=== PATIENT | female | born 1960 | race Caucasian/White ===

== ENCOUNTER 2016-12-30 17:50 | Emergency (ER) | payer BC ==
[2016-12-30 19:34] VITALS: BP 139/79
--- NOTE | 2016-12-30 19:42 | UC ---
Eye Complaint HPI - HPI Summary HPI Summary: Pt c/o sudden onset of blood in left eye. Denies pain, injury or change in vision. - History of Current Complaint Chief Complaint: UCEye Stated Complaint: LEFT EYE COMPLAINT Time Seen by Provider: 12/30/16 19:28 Hx Obtained From: Patient ?: No Onset/Duration: Sudden Onset, Lasting Hours, Still Present Timing: Constant Severity Initially: Mild Severity Currently: Mild Location of Injury: Sclera Aggravating Factor(s): Nothing Alleviating Factor(s): Nothing Associated Signs And Symptoms: Positive: Negative Related History: Diagnosed As: - subjunctival hemorrhage - Risk Factors Acute Glaucoma Risk Factors: Negative - Allergies/Home Medications Allergies/Adverse Reactions: Allergies Allergy/AdvReac Type Severity Reaction Status Date / Time Cephalexin [From Keflex] AdvReac Diarrhea Verified 12/30/16 19:31 PMH/Surg Hx/FS Hx/Imm Hx Previously Healthy: Yes - Surgical History Surgical History: Yes Surgery Procedure, Year, and Place: partial hysterectomy, bladder tuck, thyroidectomy - Family History Known Family History: Negative: Renal Disease - Social History Occupation: Employed Full-time Lives: With Family Alcohol Use: Rare Substance Use Type: None Smoking Status (MU): Never Smoked Tobacco Have You Smoked in the Last Year: No - Immunization History Most Recent Influenza Vaccination: Not the 2016/2017 Season Review of Systems Constitutional: Negative Skin: Negative Eyes: Eye Redness - left eye ENT: Negative Respiratory: Negative Cardiovascular: Negative Gastrointestinal: Negative Genitourinary: Negative Motor: Negative Neurovascular: Negative Musculoskeletal: Negative Neurological: Negative Psychological: Negative Is Patient Immunocompromised?: No All Other Systems Reviewed And Are Negative: Yes Physical Exam Triage Information Reviewed: Yes Appearance: Well-Appearing Vital Signs: Initial Vital Signs Temp 98 F 12/30/16 19:30 Pulse 72 12/30/16 19:30 Resp 16 12/30/16 19:30 BP 139/79 12/30/16 19:30 Pulse Ox 99 12/30/16 19:30 Vital Signs Reviewed: Yes Eye Exam: Other - subjunctival hematoma left eye ENT Exam: Normal Dental Exam: Normal Neck exam: Normal Respiratory Exam: Normal Cardiovascular Exam: Normal Musculoskeletal Exam: Normal Neurological Exam: Normal Psychological Exam: Normal Skin Exam: Normal Eye Complaint Course/Dx - Differential Dx/Diagnosis Differential Diagnosis/HQI/PQRI: Other - hyphema Provider Diagnoses: subjunctival hemorrhage Discharge - Discharge Plan Condition: Stable Disposition: HOME Patient Education Materials: Subconjunctival Hemorrhage (ED) Referrals: Manny Black DO [Primary Care Provider] - If Needed Price Rouse MD [Medical Doctor] - Additional Instructions: Please follow up with your PCP or return to clinic as needed. We have also provided a referral to an eye care provider for you to follow up with as needed.
== END 2016-12-30 19:54 | disposition home or self-care (01) ==
LOC: UCCORT 17:50
DX: B30.3 Acute epidemic hemorrhagic conjunctivitis (enteroviral) (principal)
CPT/HCPCS: 99211; G0463

== ENCOUNTER 2018-11-06 09:40 | Emergency (ER) | payer BC ==
[2018-11-06 10:23] VITALS: BP 135/82
--- NOTE | 2018-11-06 10:51 | UC ---
Throat Pain/Nasal Reyes HPI - HPI Summary HPI Summary: 58yo female c/o 1 month sinus congestion with PND. Positive sinus pressure. No fever. Tried sudafed without relief. Now ears feel clogged. - History of Current Complaint Chief Complaint: UCRespiratory Stated Complaint: BILATERAL EARS Time Seen by Provider: 11/06/18 10:39 Pain Intensity: 6 - Allergies/Home Medications Allergies/Adverse Reactions: Allergies Allergy/AdvReac Type Severity Reaction Status Date / Time cephalexin AdvReac Diarrhea Verified 11/06/18 10:18 Home Medications: Home Medications Ascorbic Acid TAB* [Vitamin C TAB*] 1,000 mg PO DAILY 11/06/18 [History Confirmed 11/06/18] Calcium Carbonate [Calcium] 1,000 mg PO DAILY 11/06/18 [History Confirmed ] Levothyroxine TAB* [Synthroid TAB*] 125 mcg PO DAILY 11/06/18 [History Confirmed 11/06/18] Vitamin THERAPEUTIC TAB* [Theragran TAB*] 1 tab PO DAILY 11/06/18 [History Confirmed 11/06/18] PMH/Surg Hx/FS Hx/Imm Hx Previously Healthy: Yes Endocrine History: Hypothyroidism - Surgical History Surgical History: Yes Surgery Procedure, Year, and Place: partial hysterectomy, bladder tuck, thyroidectomy - Family History Known Family History: Negative: Renal Disease - Social History Alcohol Use: Rare Substance Use Type: None Smoking Status (MU): Never Smoked Tobacco Have You Smoked in the Last Year: No - Immunization History Most Recent Influenza Vaccination: Not the 2017/2017 Season Review of Systems All Other Systems Reviewed And Are Negative: Yes Constitutional: Positive: Negative Skin: Positive: Negative Eyes: Positive: Negative ENT: Positive: Sore Throat, Ear Ache, Nasal Discharge, Sinus Congestion, Sinus Pain/Tenderness Respiratory: Positive: Negative Cardiovascular: Positive: Negative Gastrointestinal: Positive: Negative Motor: Positive: Negative Neurovascular: Positive: Negative Musculoskeletal: Positive: Negative Neurological: Positive: Negative Psychological: Positive: Negative Is Patient Immunocompromised?: No Physical Exam Triage Information Reviewed: Yes Appearance: Well-Appearing, No Pain Distress, Well-Nourished Vital Signs: Initial Vital Signs Temp 98.1 F 11/06/18 10:15 Pulse 88 11/06/18 10:15 Resp 16 11/06/18 10:15 BP 135/82 09/02/19 10:15 Pulse Ox 98 11/06/18 10:15 Vital Signs Reviewed: Yes Eye Exam: Normal Eyes: Positive: Conjunctiva Clear ENT: Positive: Pharynx normal, Nasal drainage, TM dull - left rani Respiratory: Positive: Lungs clear, Normal breath sounds, No respiratory distress Cardiovascular: Positive: RRR Musculoskeletal: Positive: Strength Intact, ROM Intact Neurological: Positive: Alert Psychological: Positive: Age Appropriate Behavior Skin Exam: Normal Throat Pain/Nasal Course/Dx - Differential Dx/Diagnosis Provider Diagnosis: Sinusitis Discharge ED - Sign-Out/Discharge Documenting (check all that apply): Patient Departure All imaging exams completed and their final reports reviewed: No Studies - Discharge Plan Condition: Stable Disposition: HOME Prescriptions: Amoxicillin/Clavulanate TAB* [Augmentin TAB 875*] 875 mg PO BID #20 tab Fluticasone NASAL SPRAY 50MCG* [Flonase NASAL SPRAY 50MCG*] 2 spray BOTH NARES DAILY #1 btl Patient Education Materials: Sinusitis (ED) Referrals: Suzy Melchor PA [Primary Care Provider] - Additional Instructions: FOLLOW UP WITH YOUR DOCTOR IF NOT COMPLETELY IMPROVED. GET REEVALUATED SOONER IF YOUR CONDITION WORSENS OR ANY QUESTIONS OR CONCERNS. - Billing Disposition and Condition Condition: STABLE Disposition: Home
== END 2018-11-06 10:57 | disposition home or self-care (01) ==
LOC: UCCORT 09:40
DX: J32.9 Chronic sinusitis, unspecified (principal); E03.9 Hypothyroidism, unspecified
CPT/HCPCS: 99212; G0463

== ENCOUNTER 2019-01-20 07:01 | Emergency (ER) | payer BC ==
--- OUTSIDE RECORDS SUMMARY | 2019-01-20 07:11 | XMS REPORT | Continuity of Care Document ---
:1960 External Reference #:[id number] Author Name Suzy Melchor PA Address [address] [place] [id number] Problems Active Problems Provider Date Paroxysmal supraventricular tachycardia Manny Black DO Onset: 2010 Osteochondropathy Manny Black DO Onset: 10/02/2010 Hypothyroidism Manny Black DO Onset: 10/02/2010 Vitamin D deficiency Marly Ramirez PA Onset: 09/16/2010 Disorder of bone Manny Black DO Onset: 10/16/2015 Celiac disease Manny Black DO Onset: 04/15/2014 Dysphagia Jj Knigston MD Onset: 09/04/2014 Social History Type Date Description Comments Sex Unknown ETOH Use Rarely consumes alcohol Tobacco Use Start: Unknown Patient has never smoked Smoking Status Reviewed: 11/28/18 Patient has never smoked Allergies, Adverse Reactions, Alerts Active Allergies Reaction Severity Comments Date Keflex Diarrhea 05/26/2015 Inactive Allergies NKDA 04/19/2014 Medications Active Medications SIG Qnty Indications Ordering Date Provider Pantoprazole Sodium 1 by mouth Q D 30tabs K21.9 Saeed, 11/28/2018 40mg DO Too Tablets DR Cosme 4 drops in both 7.500ml H60.312 Saeed, 11/28/2018 0.3-0.1% Suspension ear twice daily DO Too for 7 days Methylprednisolone dose pack as 21tabs H69.03 Saeed, 11/28/2018 4mg Tablets instructed on DO Too box Celecoxib 1 by mouth once 90caps M54.9 Saeed, 05/26/2018 200mg Capsules daily DO Too Levothyroxine Sodium take one tablet 90tabs E03.9 Saeed, 05/05/2017 125mcg by mouth every Too, DO Tablets day Vitamin B-12 1 by mouth every 90tabs Wayne, 11/12/2015 1000mcg Tablets day DO Manny Calcium 1000 + D 1 by mouth every 30tabs Wayne, 04/15/2014 day DO Manny [id number] Tablets Multivitamins 1 by mouth every OTC Wayne, 04/15/2014 Capsules day DO Manny Ibuprofen take 1 tablet 90tabs Wayne, 03/23/2012 800mg Tablets three times a DO Manny day with food Immunizations CPT Code Status Date Vaccine Reaction Lot # [id number] Given 01/25/2018 Influenza Vac, Quadrivalent, Split, 0.5mL Dosage, [place] Use 06959 Given 12/18/2014 Influenza Virus TC3 [facility] Vaccine,Quadrivalent,Split,Preserv Free, 0.5mL,[place] [address] Given 10/31/2010 Pneumococcal 23 Immunization Adult [facility] Or Immunosuppressed Patient 16896 Given 04/28/1996 Tdap (Adacel) Ages 7 And Above [facility] Only [id number] Refused 11/28/2018 Shingrix (Shingles) Zoster aware can get at pharmacy Vaccine HZV, Recombinant, Subunit, Adj [id number] Refused 11/28/2018 Tdap (Adacel) Ages 7 And Above Only [address]97[address] Refused 11/28/2018 Fluzone Highdose Age 65 And Over will get in fall Preservative & Antibiotic Free Vital Signs Date Vital Result Comment 11/28/2018 8:31am Body Temperature 98.7 F Weight 193.00 lb Heart Rate 76 /min BP Systolic 138 mmHg BP Diastolic 78 mmHg Respiratory Rate 18 /min Height 70.25 inches 5'10.25" O2 % BldC Oximetry 98 % ra BMI (Body Mass Index) 27.5 kg/m2 05/26/2018 10:25am Weight 190.00 lb Heart Rate 78 /min BP Systolic 140 mmHg BP Diastolic 82 mmHg Respiratory Rate 18 /min Height 70.25 inches 5'10.25" BMI (Body Mass Index) 27.1 kg/m2 Results Description No Information Available Procedures Date Code Description Status 10/11/2016 68540328 Mammogram Completed 05/27/2016 [id number] Colonoscopy Completed Medical Devices Description No Information Available Encounters Description No Information Available Assessments Date Code Description Provider 11/28/2018 H60.312 Diffuse otitis externa, LEFT ear Suzy Melchor PA 11/28/2018 H69.03 Patulous Eustachian tube, bilateral Suzy Melchor PA 11/28/2018 K21.9 Gastro-esophageal reflux disease without Suzy Melchor PA esophagitis 11/28/2018 E03.9 Hypothyroidism, unspecified Suzy Melchor PA 11/28/2018 K90.0 Celiac disease Suzy Melchor PA 11/28/2018 K14.6 Glossodynia Suzy Melchor PA 11/28/2018 Z68.27 Body mass index (BMI) 27.0-27.9, adult Suzy Melchor PA Plan of Treatment Future Appointment(s):05/30/2019 8:30 am - Suzy Melchor PA at [facility]2018 - Suzy Melchor PAH60.312 Diffuse otitis externa, LEFT earNew Medication :Ciprodex 0.3-0.1 % - 4 drops in both ear twice daily for 7 daysComments:Will try ciprodex ear cakmjI39.03 Patulous Eustachian tube, bilateralNew Medication: Methylprednisolone 4 mg - dose pack as instructed on boxComments:Will try medrol dose pakIf no improvement, suggest ENT yyzbdcapS94.9 Gastro-esophageal reflux disease without esophagitisNew Medication:Pantoprazole Sodium 40 mg - 1 by mouth Q DComments:Will resume protonixIf no improvement in 2 weeks, suggest EGD with Dr. Crawford up:6 months labs 1 week iaympD28.9 Hypothyroidism, unspecifiedNew Labs:TSH-fcmg, Scheduled: 05/22/19CBC With Auto Diff, Scheduled: 05/22/19Comments:Will check labsCall with questions/ytrahcccC35.0 Celiac diseaseComments:Follows with Dr. MunozK14.6 GlossodyniaComments:Continue care with neurologyWill request vmmdehrQ47.27 Body mass index (BMI) 27.0-27.9, adultNew Labs:CMP, Comp Metabolic-Fcmg, Scheduled: 05/22/19Lipid Treatment Panel -fcmg, Scheduled: 05/22/19 Functional Status Description No Information Available Mental Status Description No Information Available Referrals Description No Information Available
--- OUTSIDE RECORDS SUMMARY | 2019-01-20 07:11 | XMS REPORT | Continuity of Care Document ---
:1960 External Reference #:[id number] Author Name Suzy Melchor PA Address [address] [place] [id number] Problems Active Problems Provider Date Paroxysmal supraventricular tachycardia Manny Black DO Onset: 2010 Osteochondropathy Manny Black DO Onset: 10/02/2010 Hypothyroidism Manny Black DO Onset: 10/02/2010 Vitamin D deficiency Marly Ramirez PA Onset: 09/16/2010 Disorder of bone Manny Black DO Onset: 10/16/2015 Celiac disease Manny Black DO Onset: 04/15/2014 Dysphagia Jj Kingston MD Onset: 09/04/2014 Social History Type Date Description Comments Sex Unknown ETOH Use Rarely consumes alcohol Tobacco Use Start: Unknown Patient has never smoked Smoking Status Reviewed: 11/28/18 Patient has never smoked Allergies, Adverse Reactions, Alerts Active Allergies Reaction Severity Comments Date Keflex Diarrhea 05/26/2015 Inactive Allergies NKDA 04/19/2014 Medications Active Medications SIG Qnty Indications Ordering Date Provider Prednisone 4 tablets by 30tabs H69.93 Too Saeed, 01/01/2019 10mg Tablets mouth x 3 days, DO then 3 tablets x 3 days, then 2 tablets x 3 days, then 1 tablet until finished Pantoprazole Sodium 1 by mouth Q D 30tabs K21.9 Too Saeed, 11/28/[address] Celecoxib 1 by mouth once 90caps M54.9 Too Saeed, 05/26/2018 200mg Capsules daily DO Levothyroxine Sodium take one tablet 90tabs E03.9 Too Saeed, 2017 by mouth every DO 125mcg Tablets day Vitamin B-12 1 by mouth every 90tabs Wayne, 11/12/2015 1000mcg day DO Manny Tablets Calcium 1000 + D 1 by mouth every 30tabs Wayne, 04/15/2014 day DO Manny [id number] Tablets Multivitamins 1 by mouth every OTC Wayne, 04/15/2014 Capsules day DO Manny Ibuprofen take 1 tablet 90tabs Wayne, 03/23/2012 800mg Tablets three times a day DO Manny with food History Medications Ciprodex 4 drops in both 7.500ml H60.312 Christophe, 11/28/2018 - 0.3-0.1% Suspension ear twice daily DO Too 01/01/2019 for 7 days Methylprednisolone dose pack as 21tabs H69.03 Christophe, 11/28/2018 - 4mg instructed on DO Too 01/01/2019 Tablets box Immunizations CPT Code Status Date Vaccine Reaction Lot # [id number] Given 01/25/2018 Influenza Vac, Quadrivalent, Split, 0.5mL Dos[place], [place] Use [address] Given 12/18/2014 Influenza Virus 3 [facility] Vaccine,Quadrivalent,Split,Preserv Free, 0.5mL,[place] [address] Given 10/31/2010 Pneumococcal 23 Immunization Adult [facility] Or Immunosuppressed Patient 605[address] Given 04/28/1996 Tdap (Adacel) Ages 7 And Above [facility] Only [id number] Refused 11/28/2018 Shingrix (Shingles) Zoster aware can get at pharmacy Vaccine HZV, Recombinant, Subunit, Adj [id number] Refused 11/28/2018 Tdap (Adacel) Ages 7 And Above Only [address] Refused 11/28/2018 Fluzone Highdose Age 65 And Over will get in fall Preservative & Antibiotic Free Vital Signs Date Vital Result Comment 01/01/2019 9:26am Weight 190.00 lb Heart Rate 76 /min BP Systolic 128 mmHg BP Diastolic 82 mmHg Respiratory Rate 18 /min Height 70.25 inches 5'10.25" BMI (Body Mass Index) 27.1 kg/m2 11/28/2018 8:31am Body Temperature 98.7 F Weight 193.00 lb Heart Rate 76 /min BP Systolic 138 mmHg BP Diastolic 78 mmHg Respiratory Rate 18 /min Height 70.25 inches 5'10.25" O2 % BldC Oximetry 98 % ra BMI (Body Mass Index) 27.5 kg/m2 Results Description No Information Available Procedures Date Code Description Status 10/11/2016 [id number] Mammogram Completed 05/27/2016 [id number] Colonoscopy Completed Medical Devices Description No Information Available Encounters Type Date Location Provider Dx Diagnosis Office Visit 11/28/2018 [facility] Suzy Melchor PA H60.312 Diffuse otitis 8:30a externa, LEFT ear H69.03 Patulous Eustachian tube, bilateral K21.9 Gastro-esophageal reflux disease without esophagitis E03.9 Hypothyroidism, unspecified K90.0 Celiac disease K14.6 Glossodynia Z13.31 Encounter for screening for depression Z68.27 Body mass index (BMI) 27.0-27.9, adult Assessments Date Code Description Provider 01/01/2019 H69.93 Unspecified Eustachian tube disorder, Suzy Melchor PA bilateral 01/01/2019 Z68.27 Body mass index (BMI) 27.0-27.9, adult Suzy Melchor PA 11/28/2018 H60.312 Diffuse otitis externa, LEFT ear uSzy Melchor PA 11/28/2018 H69.03 Patulous Eustachian tube, bilateral Suzy Melchor PA 11/28/2018 K21.9 Gastro-esophageal reflux disease without Suzy Melchor PA esophagitis 11/28/2018 E03.9 Hypothyroidism, unspecified Suzy Melchor PA 11/28/2018 K90.0 Celiac disease Suzy Melchor PA 11/28/2018 K14.6 Glossodynia Suzy Melchor PA 11/28/2018 Z13.31 Encounter for screening for depression Suzy Melchor PA 11/28/2018 Z68.27 Body mass index (BMI) 27.0-27.9, adult Suzy Melchor PA Plan of Treatment Future Appointment(s):05/30/2019 8:30 am - Suzy Melchor PA at [facility]2018 - Suzy Melchor, PAH69.93 Unspecified Eustachian tube disorder, bilateralNew Medication:Prednisone 10 mg - 4 tablets by mouth x 3 days, then 3 tablets x 3 days, then 2 tablets x 3 days, then 1 tablet until finishedComments: No evidence of infectionWill treat with longer course of steroidWill refer to ENT for evalReferral:Richmond Simms DR, OtolaryngologyFollow up:PrnZ68.27 Body mass index (BMI) 27.0-27.9, adult Functional Status Description No Information Available Mental Status Description No Information Available Referrals Refer to Reason for Referral Status Appt Date Richmond Simms DR BL ear pain, congestion x 2 months Faxed all Created necessary paperwork needed for the to review and schedule the pt. KR 01/01 [address] [place] [address] [phone]
[2019-01-20 07:17] VITALS: BP 139/87
--- NOTE | 2019-01-20 07:31 | UC ---
Respiratory Complaint HPI - HPI Summary HPI Summary: 8 DAYS OF PRODUCTIVE COUGH, CONGESTION, SINUS PRESSURE, HEADACHE AND FATIGUE. NO FEVER, NAUSEA/VOMITING. - History of Current Complaint Chief Complaint: UCGeneralIllness Stated Complaint: COLD /CONGEST Time Seen by Provider: 01/20/19 07:12 Hx Obtained From: Patient Onset/Duration: Gradual Onset, Lasting Days, Still Present Timing: Constant Severity Initially: Moderate Severity Currently: Moderate Pain Intensity: 7 Pain Scale Used: 0-10 Numeric Character: Cough: Productive Aggravating Factors: Nothing Alleviating Factors: Nothing Associated Signs And Symptoms: Positive: URI, Nasal Congestion, Sinus Discomfort. Negative: Dyspnea, Fever - Allergies/Home Medications Allergies/Adverse Reactions: Allergies Allergy/AdvReac Type Severity Reaction Status Date / Time cephalexin AdvReac Diarrhea Verified 01/20/19 07:12 Home Medications: Home Medications D-Methorphan/PE/Acetaminophen [Daytime Cold Multi-Symp Gelcap] 1 each PO ONCE [History Confirmed 01/20/19] Dm/Acetaminophen/Doxylamine [Nighttime Cold-Flu Rlf Sftgl] 1 each PO ONCE [History Confirmed 01/20/19] Pantoprazole TAB * [Protonix TAB*] 40 mg PO DAILY 01/20/19 [History Confirmed ] Pseudoephedrine TAB* [Sudafed TAB*] 1 dose PO ONCE 01/20/19 [History Confirmed 01/20/19] guaiFENesin [Mucinex] 600 mg PO ONCE 01/20/19 [History Confirmed 01/20/19] PMH/Surg Hx/FS Hx/Imm Hx - Additional Past Medical History Additional PMH: CELIAC Endocrine History: Hypothyroidism GI/ History: Gastroesophageal Reflux - Surgical History Surgical History: Yes Surgery Procedure, Year, and Place: partial hysterectomy, bladder tuck, thyroidectomy, inguinal hernia repair x2 - Family History Known Family History: Negative: Renal Disease - Social History Alcohol Use: Rare Substance Use Type: None Smoking Status (MU): Never Smoked Tobacco Have You Smoked in the Last Year: No - Immunization History Most Recent Influenza Vaccination: Not the 2017/2017 Season Review of Systems All Other Systems Reviewed And Are Negative: Yes Constitutional: Positive: Fatigue ENT: Positive: Sore Throat, Ear Ache, Nasal Discharge, Sinus Congestion Respiratory: Positive: Cough Cardiovascular: Positive: Negative Gastrointestinal: Positive: Negative Physical Exam Triage Information Reviewed: Yes Appearance: Well-Appearing, No Pain Distress, Well-Nourished Vital Signs: Initial Vital Signs Temp 98.2 F 01/20/19 07:15 Pulse 89 01/20/19 07:15 Resp 16 01/20/19 07:15 BP 139/87 01/20/19 07:15 Pulse Ox 100 01/20/19 07:15 Vital Signs Reviewed: Yes Eyes: Positive: Conjunctiva Clear ENT: Positive: Hearing grossly normal, Pharynx normal, TMs normal Neck: Positive: Supple, Nontender, No Lymphadenopathy Respiratory: Positive: No respiratory distress, No accessory muscle use, Other: - INTERMITTENT COARSE BREATH SOUNDS. Negative: Decreased breath sounds Cardiovascular Exam: Normal Abdomen Description: Positive: Soft Musculoskeletal: Positive: No Edema Neurological: Positive: Alert Psychological: Positive: Age Appropriate Behavior Skin: Negative: Rashes Respiratory Course/Dx - Differential Dx/Diagnosis Provider Diagnosis: Acute bronchitis Discharge ED - Sign-Out/Discharge Documenting (check all that apply): Patient Departure All imaging exams completed and their final reports reviewed: No Studies - Discharge Plan Condition: Stable Disposition: HOME Prescriptions: Azithromycin 500 mg PO DAILY #5 tablet predniSONE TAB* [Deltasone 20 MG TAB*] 40 mg PO DAILY #10 tab Patient Education Materials: Acute Bronchitis (ED) Referrals: Suzy Melchor PA [Primary Care Provider] - If Needed Additional Instructions: YOUR SYMPTOMS MAY BE VIRALLY MEDIATED BUT GIVEN THE LENGTH OF TIME YOU HAVE BEEN ILL WE WILL COVER YOU WITH ANTIBIOTICS. IF YOU START THE MEDICINE BE SURE TO TAKE IT FOR THE FULL COURSE. REST, HYDRATE, OTC MEDS NEEDED. WILL ALSO TREAT WITH PREDNISONE TO HELP WITH AIRWAY INFLAMMATION AND COUGH MEDICINE. SEEK FOLLOW-UP WITH YOUR PCP IF YOU ARE NOT IMPROVING OVER THE NEXT 1-2 WEEKS. USE OTC AFRIN FOR NASAL CONGESTION. 2 SPRAYS IN EACH NOSTRIL TWICE DAILY NEEDED. DO NOT USE FOR MORE THAN 3-4 DAYS IN A ROW TO PREVENT DEVELOPING REBOUND CONGESTION. - Billing Disposition and Condition Condition: STABLE Disposition: Home
== END 2019-01-20 07:48 | disposition home or self-care (01) ==
LOC: UCCORT 07:01
DX: J20.9 Acute bronchitis, unspecified (principal); R09.89 Other specified symptoms and signs involving the circulatory and respiratory systems; R09.81 Nasal congestion; R51 Headache; K21.9 Gastro-esophageal reflux disease without esophagitis; Z79.899 Other long term (current) drug therapy; Z88.1 Allergy status to other antibiotic agents
CPT/HCPCS: 99212; G0463

== ENCOUNTER 2019-05-18 12:42 | Emergency (ER) | payer BC ==
--- OUTSIDE RECORDS SUMMARY | 2019-05-18 13:29 | XMS REPORT ---
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, unspecified Problem Melena K92.1 Active 6574862 Problem Other abnormal and R92.8 Active 721424849 inconclusive findings on diagnostic imaging of breast Problem Disorder of bone M85.9 Active 62397354 density and structure, unspecified Problem Lichen planus, L43.9 Active 7328653 unspecified Problem Lichen sclerosus et L90.0 Active 81140515 atrophicus Problem Zoster without B02.9 Active 173120702 complications Problem Other specified M85.80 Active 16970247 disorders of bone density and structure, unspecified site Problem Diffuse cystic N60.12 Active 90957812 mastopathy of left breast Problem Diffuse cystic N60.11 Active 04921405 mastopathy of right breast Problem Other fecal R19.5 Active 749342304 abnormalities Problem Dysuria R30.0 Active 56042919 ALLERGIES No Information ENCOUNTERS Encounter Location Date Diagnosis [facility] 103 17 May, 2019 [place] [id number] [facility] Apr, [place] [id number] [place] [facility], [address] [place], complications B02.9 [place] [id number] [facility] Feb, OBG[place], [place] [id number] [facility] Feb, Lichen planus, unspecified OBGYN [facility], L43.9 ; Other abnormal and [place] [id number] inconclusive findings on diagnostic imaging of breast R92.8 and Dysuria R30.0 [place] [facility] Jan, Other abnormal and OBGYN [facility], inconclusive findings on [place] [id number] diagnostic imaging of breast R92.8 [facility] 103 Jan, OBGYN [place] [id number] [facility] 103 Jan, Other abnormal and OBGYN [facility], inconclusive findings on [place] [id number] diagnostic imaging of breast R92.8 ; Diffuse cystic mastopathy of left breast N60.12 and Diffuse cystic mastopathy of right breast N60.11 [facility] 103 14 May, 2018 OBGYN [place] [id number] [facility] 103 14 May, 2018 OBGYN [place], [place] [id number] [facility] 103 14 May, [facility] [place] [id number] (general) (routine) with abnormal findings Z01.411 ; Encounter for screening for malignant neoplasm of colon Z12.11 and Encounter for screening mammogram for malignant neoplasm of breast Z12.31 [facility] 19 Apr, 2018 Lichen sclerosus et OBGYN [facility], atrophicus L90.0 [place] [id number] [facility] 103 Mar, Other abnormal and OBGYN [facility], inconclusive findings [place] [id number] diagnostic imaging of breast R92.8 [facility] 103 Sep, [facility] of left breast N60.12 [place] [id number] [facility] May, [facility] gynecological examination [place] [id number] (general) (routine) with abnormal findings Z01.411 ; Encounter for screening for malignant neoplasm of cervix Z12.4 ; Encounter for screening mammogram for malignant neoplasm of breast Z12.31 ; Encounter for screening for malignant neoplasm of colon Z12.11 ; Diffuse cystic mastopathy of left breast N60.12 ; Other abnormal and inconclusive findings on diagnostic imaging of breast R92.8 ; Diffuse cystic mastopathy of right breast N60.11 ; Lichen sclerosus et atrophicus L90.0 and Disorder of bone density and structure, unspecified M85.9 [facility] 103 Apr, Lichen sclerosus et OBGYN [facility], atrophicus L90.0 [place] [id number] [facility] 103 Mar, Other abnormal [facility], inconclusive findings on [place] [id number] diagnostic imaging of breast R92.8 ; Diffuse cystic mastopathy of left breast N60.12 and Diffuse cystic mastopathy of right breast N60.11 [facility] Feb, OBGYN [place] [id number] [facility] Oct, OBG[place] [id number] [place] [facility] 103 Oct, Other abnormal and [facility], inconclusive findings on [place] [id number] diagnostic imaging of breast R92.8 [facility] Oct, [facility], mammogram for malignant [place] [id number] neoplasm of breast Z12.31 and Inconclusive mammogram R92.2 [place] [facility] 103 Jun, [place], [place] [id number] [facility] Apr, [place]BG[place], [place] [id number] [place] [facility] 103 Apr, OBG[place], [place] [id number] [place] [facility] 103 Mar, Other abnormal and [facility], inconclusive findings on [place] [id number] diagnostic imaging of breast R92.8 [place] [facility] Mar, [place] [id number] [place] [facility] 103 Mar, Encounter for [facility], gynecological examination [place] [id number] (general) (routine) with abnormal findings Z01.411 ; Encounter for screening for malignant neoplasm of cervix Z12.4 ; Encounter for screening mammogram for malignant neoplasm of breast Z12.31 ; Encounter for screening for malignant neoplasm of colon Z12.11 ; Lichen sclerosus et atrophicus L90.0 ; Other specified disorders of bone density and structure, unspecified site M85.80 and Melena K92.1 [place] [facility] Mar, Papulosquamous disorder, [facility], unspecified L44.9 and [place] [id number] Noninflammatory disorder of vulva and perineum, unspecified N90.9 [place] [facility] 103 Mar, Papulosquamous disorder, [facility], unspecified L44.9 ; [place] [id number] Encounter for gynecological examination (general) (routine) with abnormal findings Z01.411 ; Encounter for screening mammogram for malignant neoplasm of breast Z12.31 ; Encounter for screening for malignant neoplasm of cervix Z12.4 and Encounter for screening for malignant neoplasm of colon Z12.11 [place] [facility] 103 Mar, Papulosquamous disorder, OBGYN [facility], unspecified L44.9 [place] [id number] [place] [facility] 103 Jan, O[place], [place] [id number] [place] [facility] 103 Jan, Pelvic and perineal pain OBGYN [facility], R10.2 [place] [id number] [facility] Jan, Pelvic and perineal pain OBGYN 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, Lichen planus 697.0 [place] [id number] [place] [facility] 103 July, Lichen planus 697.0 OBGYN [place], [place] [id number] [place] [facility] 103 July, Lichen planus 697.0 O[place], [place] [id number] [place] [facility] 103 Jun, Vaginitis 616.10 OBGYN [place], [place] [id number] [place] [facility] 103 16 Jun, 2014 OBGYN [place], [place] [id number] [place] [facility] 16 Jun, 2014 PELVIC PAIN 625.9 OBGYN [place], [place] [id number] [facility] 103 14 Jun, 2014 OBG[place], [place] [id number] [place] [facility] 103 14 Jun, 2014 PELVIC PAIN 625.9 ; OBGYN [facility], VAGINAL DISCHARGE 623.5 ; [place] [id number] Lichen planus 697.0 and Blood in stool 578.1 [place] [facility] Mar, OBGYN [place], [place] [id number] [facility] 103 Mar, ROUTINE PHILANTHROPY OFFICER EXAMINATION OBGYN [facility], V72.31 ; SCREEN MALIG [place] [id number] NEOP-COLON V76.51 ; SCREEN MAMMOGRAM NEC V76.12 ; Stricture of vagina 623.2 ; Osteopenia 733.90 and Lichen planus 697.0 [facility] 103 08 Jun, 2013 OBGYN [place], [place] [id number] [facility] 103 Feb, [place], [place] [id number] [facility] 103 Feb, ROUTINE PHILANTHROPY OFFICER EXAMINATION OBGYN [facility], V72.31 ; SCREEN MALIG [place] [id number] NEOP-COLON V76.51 ; SCREEN MAMMOGRAM NEC V76.12 ; Stricture of vagina 623.2 ; Osteopenia 733.90 and Lichen planus 697.0 [place] [facility] 103 Jan, [place], [place] [id number] [facility] Mar, Osteopenia 733.90 [place], [place] [id number] [place] [facility] 103 Mar, OBG[place], [place] [id number] [place] [facility] 103 Mar, Osteopenia 733.90 [place], [place] [id number] [place] [facility] 103 Feb, ROUTINE PHILANTHROPY OFFICER EXAMINATION OBGYN [facility], V72.31 ; PAP SMEAR W/O PHILANTHROPY OFFICER [place] [id number] EXAM V76.2 ; Lichen planus 697.0 and SCREEN MAMMOGRAM NEC V76.12 [place] [facility] 103 Jun, PELVIC PAIN 625.9 and OBGYN [facility], Levator syndrome 564.6 [place] [id number] [place] [facility] 103 Jun, PELVIC PAIN 625.9 OBGYN [place], [place] [id number] [place] [facility] 103 May, [place]BG[place], [place] [id number] [place] [facility] 103 May, OBGYN [place], [place] [id number] [place] [facility] 103 May, OBG[place], [place] [id number] [place] [facility] 103 May, PELVIC PAIN 625.9 ; Lichen OBGYN [facility], planus 697.0 and Levator [place] [id number] syndrome 564.6 [place] [facility] 103 Sep, OBG[place], [place] [id number] [place] [facility] 103 Sep, ROUTINE PHILANTHROPY OFFICER EXAMINATION OBGYN [facility], V72.31 [place] [id number] [place] [facility] 103 Aug, Ovarian cyst NOS 620.2 and OBGYN [facility], BREAST PAIN 611.71 [place] [id number] [place] [facility] 103 Aug, Ovarian cyst NOS 620.2 O[place]YN [place], [place] [id number] [place] [facility] 103 Jun, Ovarian cyst NOS 620.2 O[place], [place] [id number] [place] [facility] 103 Jun, PELVIC PAIN 625.9 and OBGYN [facility], Ovarian cyst NOS 620.2 [place] [id number] [place] [facility] 103 Aug, ROUTINE PHILANTHROPY OFFICER EXAMINATION OBGYN [facility], V72.31 and Lichen planus [place] [id number] 697.0 [place] [facility] 103 Nov, OBG[place], [place] [id number] [place] [facility] 103 Nov, O[place], [place] [id number] [place] [facility] 103 Oct, Lichen planus 697.0 O[place]YN [place], [place] [id number] [place] [facility] 103 Sep, OBG[place], [place] [id number] [place] [facility] 103 Sep, Lichen sclerosus et OBGYN [facility], atrophicus 701.0 ; ABN [place] [id number] FINDINGS- ORGANS 793.5 ; Urinary frequency 788.41 and Dysuria 788.1 [facility] [address] Sep, Medical [place], [place] [id number] [place] [facility] Sep, Adnexal mass 625.8 [place], [place] [id number] [place] [facility] 103 Sep, Adnexal mass 625.8 [place], [place] [id number] [place] [facility] 103 Sep, OBG[place], [place] [id number] [place] [facility] 103 Aug, Adnexal mass 625.8 O[place], [place] [id number] [facility] 103 29 Aug, 2008 ROUTINE PHILANTHROPY OFFICER EXAMINATION OBGYN [facility], V72.31 ; Urinary frequency [place] [id number] 788.41 ; ABN FINDINGS- ORGANS 793.5 ; Bloating 787.3 and Fibrocystic disease of breast 610.1 IMMUNIZATIONS No Known Immunizations SOCIAL HISTORY Never Assessed REASON FOR REFERRAL FUNCTIONAL STATUS PLAN OF CARE VITAL SIGNS MEDICATIONS Unknown Medications PROCEDURES No Known procedures RESULTS No Results REASON FOR VISIT Insurance Providers [facility] Patient Patient Patient Patient Patient Subscriber Subscriber Subscriber Group Insurance Plan Plan Plan Plan ID Relationship Address Phone Name Date of ID Name Date of No Type Insurance Insurance Insurance Coverage to Subscriber Address Phone Name Dates Excellus [address] Excellus self Cathy [id number] Blue [address]2335 89 [address] [place] 5 Cross/[place] Cross/Blue Shield [address] Shield Blue Cross [address] Blue Cross self Cathy [id number] Blue 01654 89 Blue [place] 2 2 Shield Y [facility] [address] MEDICAL (GENERAL) HISTORY Type Description Date Medical History hyperthyroidism (past) Medical History hypothyroidism Medical History OAB Medical History blood transfusion-past Medical History Lichen Planus Medical History acid refluc Medical History celiac disease Surgical History hernia repair 1963 Surgical History thyroid removed 1974 Surgical History partial hysterectomy & bladder tuck 1989 Surgical History bladder tuck 2002 Surgical History Laparoscopic R oophorectomy 2008 Surgical History [place] Teeth 2009 Surgical History endoscopy 03/01/14 Surgical History colonoscopy 05/08/16 Hospitalization History childbirth Hospitalization History see above Hospitalization History dehydration from colonoscopy 10/16 Hospitalization History pneumonia 2011
--- OUTSIDE RECORDS SUMMARY | 2019-05-18 13:29 | XMS REPORT | Continuity of Care Document ---
:1960 External Reference #:[id number] Author Name AuraJohnTitaROSE Address [address] [place] [address] Problems Active Problems Provider Date Paroxysmal supraventricular [...] Patient has never smoked Smoking Status Reviewed: 05/08/19 Patient has never smoked Allergies, Adverse Reactions, Alerts Active Allergies Reaction Severity Comments Date Keflex Diarrhea 05/26/2015 Inactive Allergies NKDA 04/19/2014 Medications Active Medications SIG Qnty Indications Ordering Provider Date Pantoprazole Sodium 1 by mouth Q D 30tabs K21.9 Too Saeed, 11/28/[address] Celecoxib 1 by mouth once 90caps M54.9 Too Saeed, 05/26/2018 200mg Capsules daily DO Levothyroxine Sodium take one tablet 90tabs E03.9 Too Saeed, 2017 125mcg by mouth every DO Tablets day Vitamin B-12 1 by mouth 90tabs Manny Black, 11/12/2015 1000mcg every day DO Tablets Calcium 1000 + D 1 by mouth 30tabs Manny Black, 04/15/2014 every day DO [id number] Tablets Multivitamins 1 by mouth OTC Manny Black, 04/15/2014 Capsules every day DO Ibuprofen take 1 tablet 90tabs Manny Black, 03/23/2012 800mg Tablets three times a DO day with food History Medications Prednisone 4 tablets by 30tabs H69.93 Christophe, 01/01/2019 - 10mg Tablets mouth x 3 days, Too, DO 01/16/2019 then 3 tablets x 3 days, then 2 tablets x 3 days, then 1 tablet until finished Ciprodex 4 drops in both 7.500ml H60.312 Christophe, 11/28/2018 - 0.3-0.1% Suspension ear twice daily Too, DO 01/01/2019 for 7 days Methylprednisolone dose pack as 21tabs H69.03 Christophe, 11/28/2018 - 4mg instructed on Too DO 01/01/2019 Tablets box Immunizations CPT Code Status Date Vaccine Reaction Lot # [id number] Given 01/28/2019 Influenza Vac, Quadrivalent, Split, 0.5mL Dosage, Im Use 95314 Given 01/25/2018 Influenza Vac, Quadrivalent, Split, 0.5mL Dosage, Im Use 70714 Given 12/18/2014 Influenza Virus 3 [facility] Vaccine,Quadrivalent,Split,Preserv Free, 0.5mL,[place] [address] Given 10/31/2010 Pneumococcal 23 Immunization Adult [facility] Or Immunosuppressed Patient 80255 Given 04/28/1996 Tdap (Adacel) Ages 7 And Above [facility] Only [address] Refused 11/28/2018 Shingrix (Shingles) Zoster aware can get at pharmacy Vaccine HZV, Recombinant, Subunit, Adj 04152 Refused 11/28/2018 Tdap (Adacel) Ages 7 And Above Only [address] Refused 11/28/2018 Fluzone Highdose Age 65 And Over will get in fall Preservative & Antibiotic Free Vital Signs Date Vital Result Comment 05/08/2019 1:45pm Weight 189.00 lb Heart Rate 92 /min BP Systolic 150 mmHg BP Diastolic 90 mmHg Respiratory Rate 18 /min Height 70.25 inches 5'10.25" BMI (Body Mass Index) 26.9 kg/m2 01/01/2019 9:26am Weight 190.00 lb Heart Rate 76 /min BP Systolic 128 mmHg BP Diastolic 82 mmHg Respiratory Rate 18 /min Height 70.25 inches 5'10.25" BMI (Body Mass Index) 27.1 kg/m2 Results Description No Information Available Procedures Date Code Description Status 10/11/2016 50979631 Mammogram Completed 05/27/2016 10433125 Colonoscopy Completed Medical Devices Description No Information Available Encounters Type Date Location Provider Dx Diagnosis Office Visit 01/01/2019 [facility] Suzy Melchor PA H69.93 Unspecified Eustachian 9:30a tube disorder, bilateral Z68.27 Body mass index (BMI) 27.0-27.9, adult Office Visit 11/28/2018 8:30a [facility] Suzy Melchor PA H60.312 Diffuse otitis externa, LEFT ear H69.03 Patulous Eustachian tube, bilateral K21.9 Gastro-esophageal reflux disease without esophagitis E03.9 Hypothyroidism, unspecified K90.0 Celiac disease K14.6 Glossodynia Z13.31 Encounter for screening for depression Z68.27 Body mass index (BMI) 27.0-27.9, adult Assessments Date Code Description Provider 05/08/2019 R29.810 Facial weakness Tita Chavarria NP 05/08/2019 R03.0 Elevated blood-pressure reading, without Tita Chavarria NP diagnosis of hypertension 01/01/2019 H69.93 Unspecified Eustachian tube disorder, Suzy [...] 8:30 am - Suzy Melchor PA at [facility]2019 - Tita Chavarria, NPR29.810 Facial weaknessComments:Left sided droop of eyelid and weakened smile with change in vision all on left sideDiscussed potential for stroke given other symptoms. Advised recommend E.R. evaluation. Pt is agreeable to this however refuses EMS transport. Is accepting of risks of self-transport. Is medically stable at time of discharge. Will go to E.R. nowR03.0 Elevated blood-pressure reading, without diagnosis of hypertensionComments:Elevated blood pressure reading today Functional Status Description No Information Available Mental Status Description No Information Available Referrals Refer to Reason for Referral Status Appt Date [address] DR BL ear pain, congestion x 2 months Faxed all Closed 2018 necessary paperwork needed for the to review and schedule the pt. KR 01/01 [address] [place] [address] [phone]
--- OUTSIDE RECORDS SUMMARY | 2019-05-18 13:29 | XMS REPORT ---
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, unspecified Problem Melena K92.1 Active 4216539 Problem Other abnormal and R92.8 Active 077074113 inconclusive findings on diagnostic imaging of breast Problem Disorder of bone M85.9 Active 30608128 density and structure, unspecified Problem Lichen planus, L43.9 Active 2451035 unspecified Problem Lichen sclerosus et L90.0 Active 73309196 atrophicus Problem Zoster without B02.9 Active 968040338 complications Problem Other specified M85.80 Active 88275005 disorders of bone density and structure, unspecified site Problem Diffuse cystic 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 Active 35782250 mastopathy of left breast Problem Diffuse cystic N60.11 Active 57021546 mastopathy of right breast Problem Other fecal R19.5 Active 910159649 abnormalities Problem Dysuria R30.0 Active 85354978 ALLERGIES No Information ENCOUNTERS Encounter Location Date Diagnosis [facility] [address] 17 May, 2019 [place]BG[place] [id number] [facility] Apr, [place] [id number] [place] [facility] Feb, [place] [address] [place], complications B02.9 [place] [id number] [facility] Feb, [place]BGYN [place], [place] [id number] [facility] Feb, Lichen planus, unspecified OBGYN [facility], L43.9 ; Other abnormal and [place] [id number] inconclusive findings on diagnostic imaging of breast R92.8 and Dysuria R30.0 [facility] Jan, Other abnormal and OBGYN [facility], inconclusive [place] [id number] diagnostic imaging of breast R92.8 [facility] 103 Jan, OBGYN [place], [place] [id number] [facility] Jan, Other abnormal and OBGYN [facility], inconclusive [place] [id number] diagnostic imaging of breast R92.8 ; Diffuse cystic mastopathy of left breast N60.12 and Diffuse cystic mastopathy of right breast N60.11 [facility] 103 14 May, 2018 OBGYN [place], [place] [id number] [facility] 14 May, 2018 [place]BG[place] [id number] [facility] 14 May[facility] [place] [id number] (general) (routine) with abnormal findings Z01.411 ; Encounter for screening for malignant neoplasm of colon Z12.11 and Encounter for screening mammogram for malignant neoplasm of breast Z12.31 [facility] 19 Apr, 2018 Lichen sclerosus et OBGYN [facility], atrophicus L90.0 [place] [id number] [facility] Mar, Other abnormal and OBGYN [facility], inconclusive findings [place] [id number] diagnostic imaging of breast R92.8 [facility] Sep, [facility] of [facility] breast N60.12 [place] [id number] [facility] May, [facility] [place] [id number] (general) (routine) with abnormal findings Z01.411 ; [...] of bone density and structure, unspecified M85.9 [facility] 103 Apr, Lichen sclerosus et OBGYN [facility], atrophicus L90.0 [place] [id number] [facility] 103 Mar, Other [facility]clusive [place] [id number] diagnostic imaging of breast R92.8 ; Diffuse cystic mastopathy of left breast N60.12 and Diffuse cystic mastopathy of right breast N60.11 [facility] Feb, [place]BGYN [place], [place] [id number] [facility] Oct, [place]BG[place] [id number] [facility] 103 Oct, Other abnormal and [facility], inconclusive findings [place] [id number] diagnostic imaging of breast R92.8 [facility] Oct, [facility] mammogram for malignant [place] [id number] neoplasm of breast Z12.31 and Inconclusive mammogram R92.2 [facility] Jun, [place]BG[place], [place] [id number] [facility] Apr, [place], [place] [id number] [facility] Apr, [place]BG[place] [id number] [facility] Mar, Other abnormal and [facility] inconclusive [place] [id number] diagnostic imaging of breast R92.8 [facility] Mar, [place] [id number] [facility] Mar, Encounter for [facility], gynecological examination [place] [id number] (general) (routine) with abnormal findings Z01.411 ; Encounter for screening for malignant neoplasm of cervix Z12.4 ; Encounter for screening mammogram for malignant neoplasm of breast Z12.31 ; Encounter for screening for malignant neoplasm of colon Z12.11 ; Lichen sclerosus et atrophicus L90.0 ; Other specified disorders of bone density and structure, unspecified site M85.80 and Melena K92.1 [facility] Mar, Papulosquamous disorder, [facility], unspecified L44.9 and [place] [id number] Noninflammatory disorder of vulva and perineum, unspecified N90.9 [facility] Mar, Papulosquamous disorder, [facility], unspecified L44.9 ; [place] [id number] Encounter for gynecological examination (general) (routine) with abnormal findings Z01.411 ; Encounter for screening mammogram for malignant neoplasm of breast Z12.31 ; Encounter for screening for malignant neoplasm of cervix Z12.4 and Encounter for screening for malignant neoplasm of colon Z12.11 [facility] 103 Mar, Papulosquamous disorder, OBGYN [facility], unspecified L44.9 [place] [id number] [facility] Jan, [place]BG[place] [id number] [facility] Jan, Pelvic and perineal pain OBGYN [facility], R10.2 [place] [id number] [facility] Jan, Pelvic and perineal pain OBGYN [facility], R10.2 ; Anal spasm K59.4 ; [place] [id number] Papulosquamous disorder, unspecified L44.9 ; Dysuria R30.0 and Abnormal weight loss R63.4 [facility] Dec, [place]BG[place] [id number] [facility] Oct, [place] [id number] [facility] Oct, Dysuria 788.1 OBGYN [place] [id number] [address] Oct, UTI [Urinary tract OBGYN Road [address] [place], infection] 599.0 and [place] [id number] Lichen planus 697.0 [facility] July, PELVIC PAIN 625.9 and OBGYN [facility], Lichen planus 697.0 PR [id number] [facility] July, Lichen planus 697.0 [place]BGYN [place] [id number] [facility] July, Lichen planus 697.0 [place], [place] [id number] [facility] Jun, Vaginitis 616.10 [place] [id number] [facility] 103 16 Jun, 2014 [place]BGYN [place], [place] [id number] [facility] 16 Jun, 2014 PELVIC PAIN 625.9 [place]YN [place], [place] [id number] [facility] 14 Jun, 2014 OBGYN [place], [place] [id number] [facility] 103 14 Jun, 2014 PELVIC PAIN 625.9 ; OBGYN [facility], VAGINAL DISCHARGE 623.5 ; [place] [id number] Lichen planus 697.0 and Blood in stool 578.1 [facility] Mar, OBGYN [place], [place] [id number] [facility] Mar, ROUTINE [employer] EXAMINATION OBGYN [facility], V72.31 ; SCREEN MALIG [place] [id number] NEOP-COLON V76.51 ; SCREEN MAMMOGRAM NEC V76.12 ; Stricture of vagina 623.2 ; Osteopenia 733.90 and Lichen planus 697.0 [facility] 103 08 Jun, 2013 OBGYN [place], [place] [id number] [facility] 103 Feb, [place]BG[place], [place] [id number] [facility] Feb, ROUTINE [employer] EXAMINATION OBGYN [facility], V72.31 ; SCREEN MALIG [place] [id number] NEOP-COLON V76.51 ; SCREEN MAMMOGRAM NEC V76.12 ; Stricture of vagina 623.2 ; Osteopenia 733.90 and Lichen planus 697.0 [facility] Jan, [place], [place] [id number] [facility] Mar, Osteopenia 733.90 [place], [place] [id number] [facility] Mar, [place] [id number] [facility] Mar, Osteopenia 733.90 [place], [place] [id number] [facility] Feb, ROUTINE [employer] EXAMINATION OBGYN [facility], V72.31 ; PAP SMEAR W/O [employer] CONS[employer] PR [id number] EXAM V76.2 ; Lichen planus 697.0 and SCREEN MAMMOGRAM NEC V76.12 [facility] Jun, PELVIC PAIN 625.9 and OBGYN [facility], Levator syndrome 564.6 [place] [id number] [facility] Jun, PELVIC PAIN 625.9 [place], [place] [id number] [facility] May, [place], [place] [id number] [facility] May, [place] [id number] [facility] May, [place], [place] [id number] [facility] May, PELVIC PAIN 625.9 ; Lichen OBGYN [facility], planus 697.0 and Levator [place] [id number] syndrome 564.6 [facility] Sep, [place]BG[place], [place] [id number] [facility] Sep, ROUTINE [employer]ANT EXAMINATION OBGYN [facility], V72.31 [place] [id number] [facility] 103 Aug, Ovarian cyst NOS 620.2 and OBGYN [facility], BREAST PAIN 611.71 [place] [id number] [facility] Aug, Ovarian cyst NOS 620.2 [place], [place] [id number] [facility] 103 Jun, Ovarian cyst NOS 620.2 [place], [place] [id number] [facility] Jun, PELVIC PAIN 625.9 and OBGYN [facility], Ovarian cyst NOS 620.2 [place] [id number] [facility] 103 Aug, ROUTINE [employer]SULTANT EXAMINATION OBGYN [facility], V72.31 and Lichen planus [place] [id number] 697.0 [facility] Nov, [place], [place] [id number] [facility] Nov, [place], [place] [id number] [facility] Oct, Lichen planus 697.0 [place], [place] [id number] [facility] Sep, [place], [place] [id number] [facility] Sep, Lichen sclerosus et OBGYN [facility], atrophicus 701.0 ; ABN PR [id number] FINDINGS- ORGANS 793.5 ; Urinary frequency 788.41 and Dysuria 788.1 [facility] [address] Sep, [facility] [place] [id number] [facility] Sep, Adnexal mass 625.8 [place] [id number] [facility] Sep, Adnexal mass 625.8 [place], [place] [id number] [facility] Sep, [place], [place] [id number] [facility] 103 Aug, Adnexal mass 625.8 [place], [place] [id number] [facility] 103 29 Aug, 2008 ROUTINE [employer]SULTANT EXAMINATION OBGYN [facility], V72.31 ; Urinary frequency PR [id number] 788.41 ; ABN FINDINGS- ORGANS 793.5 ; Bloating 787.3 and Fibrocystic disease of breast 610.1 IMMUNIZATIONS No Known Immunizations SOCIAL HISTORY Never Assessed REASON FOR REFERRAL FUNCTIONAL STATUS PLAN OF CARE VITAL SIGNS MEDICATIONS Unknown Medications PROCEDURES No Known procedures RESULTS No Results REASON FOR VISIT Biopsy order - Needs updating. Insurance Providers [facility] Health Member Patient Patient Patient Patient Patient Subscriber Subscriber Subscriber Group Insurance Plan Plan Plan Plan ID Relationship Address Phone Name Date of ID Name Date of No Type Insurance Insurance Insurance Coverage to Subscriber Address Phone Name Dates Blue [employer] [phone] Blue Cross self Cathy [id number] [phone] Blue [id number] 89 [place] 2 2 Shield [facility] [address] [place] [phone] [employer] self Cathy [id number] Blue [id number] 89 Blue [place] 5 Cross/Blue [place] Cross/Blue Shield [id number] Shield MEDICAL (GENERAL) HISTORY Type Description Date Medical History hyperthyroidism (past) Medical History hypothyroidism Medical History OAB Medical History blood transfusion-past Medical History Lichen Planus Medical History acid refluc Medical History celiac disease Surgical History hernia repair 1963 Surgical History thyroid removed 1974 Surgical History partial hysterectomy & bladder tuck 1989 Surgical History bladder tuck 2002 Surgical History Laparoscopic R oophorectomy 2008 Surgical History [place] Teeth 2009 Surgical History endoscopy 03/01/14 Surgical History colonoscopy 05/08/16 Hospitalization History childbirth Hospitalization History see above Hospitalization History dehydration from colonoscopy 10/16 Hospitalization History pneumonia 2011
--- OUTSIDE RECORDS SUMMARY | 2019-05-18 13:29 | XMS REPORT ---
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 86385397 disorder, unspecified Problem Melena K92.1 Active 1160106 Problem Other abnormal and R92.8 Active 252206954 inconclusive findings on diagnostic imaging of breast Problem Disorder of bone M85.9 Active 95126072 density and structure, unspecified Problem Lichen planus, L43.9 Active 8007890 unspecified Problem Lichen sclerosus et L90.0 Active 00168681 atrophicus Problem [place]oster without B02.9 Active 470328387 complications Problem Other specified M85.80 Active 17781220 disorders of bone density and structure, unspecified site Problem Diffuse cystic N60.12 Active 85338738 mastopathy of left breast Problem Diffuse cystic N60.11 Active 08949312 mastopathy of right breast Problem Other fecal R19.5 Active 180353886 abnormalities Problem Dysuria R30.0 Active 35714607 ALLERGIES No Information ENCOUNTERS Encounter Location Date Diagnosis [facility] 103 17 May, 2019 [place] [id number] [facility] Apr, [place] [id number] [place] [facility] Feb, [place] [address] [place], complications B02.9 [place] [id number] [facility] Feb, [place] [id number] [facility] Feb, Lichen planus, unspecified OBGYN [facility], L43.9 ; Other abnormal and [place] [id number] inconclusive findings on diagnostic imaging of breast R92.8 and Dysuria R30.0 [place] [facility] Jan, Other abnormal and OBGYN [facility], inconclusive findings on [place] [id number] diagnostic imaging of breast R92.8 [facility] 103 Jan, OBGYN [place], [place] [id number] [facility] 103 Jan, Other abnormal and OBGYN [facility], inconclusive findings on [place] [id number] diagnostic imaging of breast R92.8 ; Diffuse cystic mastopathy of left breast N60.12 and Diffuse cystic mastopathy of right breast N60.11 [facility] 103 14 May, 2018 [place]BGYN [place], [place] [id number] [facility] 103 14 May, 2018 [place]BG[place] [id number] [facility] 14 May, [facility] [place] [id number] (general) (routine) with abnormal findings Z01.411 ; Encounter for screening for malignant neoplasm of colon Z12.11 and Encounter for screening mammogram for malignant neoplasm of breast Z12.31 [facility] 19 Apr, 2018 Lichen sclerosus et OBGYN [facility], atrophicus L90.0 [place] [id number] [facility] 103 Mar, Other abnormal and OBGYN [facility], inconclusive findings [place] [id number] diagnostic imaging of breast R92.8 [facility] 103 Sep, [facility], of left breast N60.12 [place] [id number] [facility] May, [facility] gynecological examination [place] [id number] (general) (routine) with abnormal findings Z01.411 ; [...] of bone density and structure, unspecified M85.9 [facility] 103 Apr, Lichen sclerosus et [facility]BG[facility], atrophicus L90.0 [place] [id number] [facility] 103 Mar, Other abnormal and [facility], inconclusive findings on [place] [id number] diagnostic imaging of breast R92.8 ; Diffuse cystic mastopathy of left breast N60.12 and Diffuse cystic mastopathy of right breast N60.11 [facility] Feb, [place]BG[place] [id number] [facility] Oct, [place]BG[place] [id number] [place] [facility] Oct, Other abnormal and [facility], inconclusive findings on [place] [id number] diagnostic imaging of breast R92.8 [facility] Oct, [facility], mammogram for malignant [place] [id number] neoplasm of breast Z12.31 and Inconclusive mammogram R92.2 [place] [facility] Jun, [place], [place] [id number] [facility] Apr, [place], [place] [id number] [place] [facility] 103 Apr, [place], [place] [id number] [place] [facility] 103 Mar, Other abnormal and [facility], inconclusive findings [place] [id number] diagnostic imaging of breast R92.8 [place] [facility] Mar, [place] [id number] [place] [facility] Mar, Encounter for [facility], gynecological examination [place] [id number] (general) (routine) with abnormal findings Z01.411 ; Encounter for screening for malignant neoplasm of cervix Z12.4 ; Encounter for screening mammogram for malignant neoplasm of breast Z12.31 ; Encounter for screening for malignant neoplasm of colon Z12.11 ; Lichen sclerosus et atrophicus L90.0 ; Other specified disorders of bone density and structure, unspecified site M85.80 and Melena K92.1 [place] [facility] Mar, Papulosquamous disorder, [facility], unspecified L44.9 and [place] [id number] Noninflammatory disorder of vulva and perineum, unspecified N90.9 [place] [facility] 103 Mar, Papulosquamous disorder, [facility], unspecified L44.9 ; [place] [id number] Encounter for gynecological examination (general) (routine) with abnormal findings Z01.411 ; Encounter for screening mammogram for malignant neoplasm of breast Z12.31 ; Encounter for screening for malignant neoplasm of cervix Z12.4 and Encounter for screening for malignant neoplasm of colon Z12.11 [place] [facility] 103 Mar, Papulosquamous disorder, OBGYN [facility], unspecified L44.9 [place] [id number] [place] [facility] 103 Jan, [place], [place] [id number] [place] [facility] 103 Jan, Pelvic and perineal pain O[facility], R10.2 [place] [id number] [facility] Jan, Pelvic and perineal pain OBGYN [facility], R10.2 ; Anal spasm K59.4 ; [place] [id number] Papulosquamous disorder, unspecified L44.9 ; Dysuria R30.0 and Abnormal weight loss R63.4 [place] [facility] Dec, [place]BG[place] [id number] [facility] Oct, [place] [id number] [facility] Oct, Dysuria 788.1 [place] [id number] [address] Oct, UTI [Urinary tract [address]BGYN [address] [place], infection] 599.0 and [place] [id number] Lichen planus 697.0 [place] [facility] July, PELVIC PAIN 625.9 and OBGYN [facility], Lichen planus 697.0 [place] [id number] [place] [facility] 103 July, Lichen planus 697.0 [place] [id number] [place] [facility] 103 July, Lichen planus 697.0 [place] [id number] [place] [facility] 103 Jun, Vaginitis 616.10 [place] [id number] [place] [facility] 103 16 Jun, 2014 [place]BG[place], [place] [id number] [place] [facility] 16 Jun, 2014 PELVIC PAIN 625.9 [place], [place] [id number] [facility] 14 Jun, 2014 [place] [id number] [place] [facility] 103 14 Jun, 2014 PELVIC PAIN 625.9 ; OBGYN [facility], VAGINAL DISCHARGE 623.5 ; [place] [id number] Lichen planus 697.0 and Blood in stool 578.1 [place] [facility] Mar, OBGYN [place], [place] [id number] [facility] 103 Mar, ROUTINE PATIENT REGISTRATION CLERK EXAMINATION OBGYN [facility], V72.31 ; SCREEN MALIG [place] [id number] NEOP-COLON V76.51 ; SCREEN MAMMOGRAM NEC V76.12 ; Stricture of vagina 623.2 ; Osteopenia 733.90 and Lichen planus 697.0 [facility] 103 08 Jun, 2013 OBGYN [place], [place] [id number] [facility] 103 Feb, [place]BG[place], [place] [id number] [facility] 103 Feb, ROUTINE PATIENT REGISTRATION CLERK EXAMINATION OBGYN [facility], V72.31 ; SCREEN MALIG [place] [id number] NEOP-COLON V76.51 ; SCREEN MAMMOGRAM NEC V76.12 ; Stricture of vagina 623.2 ; Osteopenia 733.90 and Lichen planus 697.0 [place] [facility] Jan, [place], [place] [id number] [facility] Mar, Osteopenia 733.90 [place] [id number] [place] [facility] 103 Mar, [place], [place] [id number] [place] [facility] 103 Mar, Osteopenia 733.90 [place] [id number] [place] [facility] 103 Feb, ROUTINE PATIENT REGISTRATION CLERK EXAMINATION OBGYN [facility], V72.31 ; PAP SMEAR W/O PATIENT REGISTRATION CLERK [place] [id number] EXAM V76.2 ; Lichen planus 697.0 and SCREEN MAMMOGRAM NEC V76.12 [place] [facility] 103 Jun, PELVIC PAIN 625.9 and OBGYN [facility], Levator syndrome 564.6 [place] [id number] [place] [facility] 103 Jun, PELVIC PAIN 625.9 [place], [place] [id number] [facility] 103 May, [place], [place] [id number] [facility] 103 May, [place], [place] [id number] [facility] 103 May, [place], [place] [id number] [facility] 103 May, PELVIC PAIN 625.9 ; Lichen OBGYN [facility], planus 697.0 and Levator [place] [id number] syndrome 564.6 [place] [facility] Sep, [place]BG[place], [place] [id number] [facility] 103 Sep, ROUTINE PATIENT REGISTRATION CLERK EXAMINATION OBGYN [facility], V72.31 [place] [id number] [place] [facility] 103 Aug, Ovarian cyst NOS 620.2 and OBGYN [facility], BREAST PAIN 611.71 [place] [id number] [place] [facility] 103 Aug, Ovarian cyst NOS 620.2 [place], [place] [id number] [facility] 103 Jun, Ovarian cyst NOS 620.2 [place] [id number] [place] [facility] 103 Jun, PELVIC PAIN 625.9 and OBGYN [facility], Ovarian cyst NOS 620.2 [place] [id number] [place] [facility] 103 Aug, ROUTINE PATIENT REGISTRATION CLERK EXAMINATION OBGYN [facility], V72.31 and Lichen planus [place] [id number] 697.0 [place] [facility] 103 Nov, [place] [id number] [place] [facility] 103 Nov, [place], [place] [id number] [facility] 103 Oct, Lichen planus 697.0 [place] [id number] [place] [facility] 103 Sep, [place], [place] [id number] [place] [facility] 103 Sep, Lichen sclerosus et OBGYN [facility], atrophicus 701.0 ; ABN [place] [id number] FINDINGS- ORGANS 793.5 ; Urinary frequency 788.41 and Dysuria 788.1 [facility] [address] Sep, [facility] [place] [id number] [place] [facility] Sep, Adnexal mass 625.8 [place] [id number] [facility] 103 Sep, Adnexal mass 625.8 [place] [id number] [place] [facility] 103 Sep, [place], [place] [id number] [facility] 103 Aug, Adnexal mass 625.8 [place], [place] [id number] [facility] 103 29 Aug, 2008 ROUTINE PATIENT REGISTRATION CLERK EXAMINATION OBGYN [facility], V72.31 ; Urinary frequency [place] [id number] 788.41 ; ABN FINDINGS- ORGANS 793.5 ; Bloating 787.3 and Fibrocystic disease of breast 610.1 IMMUNIZATIONS No Known Immunizations SOCIAL HISTORY Never Assessed REASON FOR REFERRAL FUNCTIONAL STATUS PLAN OF CARE VITAL SIGNS MEDICATIONS Unknown Medications PROCEDURES No Known procedures RESULTS No Results REASON FOR VISIT MAY 2019-colpo Insurance Providers [facility] Member Patient Patient Patient Patient Patient Subscriber Subscriber Subscriber Group Insurance Plan Plan Plan Plan ID Relationship Address Phone Name Date of ID Name Date of No Type Insurance Insurance Insurance Coverage to Subscriber Address Phone Name Dates Blue Cross [phone] Blue Cross self Cathy [id number] Blue [id number] 89 Blue [place] 2 2 Shield [facility] [address] [place] [phone] [place] self Cathy [id number] Blue [id number] 89 Blue [place] 5 Cross/Blue [place] Cross/Blue Shield [id number] Shield MEDICAL (GENERAL) HISTORY Type Description Date [...] History Laparoscopic R oophorectomy 2008 Surgical History [place] Teeth 2009 Surgical History endoscopy 03/01/14 Surgical History colonoscopy 05/08/16 Hospitalization History childbirth Hospitalization History see above Hospitalization History dehydration from colonoscopy 10/16 Hospitalization History pneumonia 2011
--- OUTSIDE RECORDS SUMMARY | 2019-05-18 13:29 | XMS REPORT ---
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, unspecified Problem Anal spasm K59.4 Active 52426715 Problem Abnormal weight R63.4 Active 823837418 loss Problem Pelvic and perineal R10.2 Active 703543016 pain Problem Lichen sclerosus et L90.0 Active 45693333 atrophicus Problem Other specified M85.80 Active 43741288 disorders of bone density and structure, unspecified site Problem Disorder of bone M85.9 Active 99218885 density and structure, unspecified Problem Diffuse cystic N60.12 Active 16462685 mastopathy of left breast Problem Diffuse cystic N60.11 Active 35072877 mastopathy of right breast Problem Subacute and N76.3 Active 087038264 chronic vulvitis Problem Other abnormal and R92.8 Active 622993579 inconclusive findings on diagnostic imaging of breast Problem Zoster without B02.9 Active 491924337 complications Problem Melena K92.1 Active 8815284 Problem Other fecal R19.5 Active 451370300 abnormalities Problem Lichen planus, L43.9 Active 8994797 unspecified Problem Dysuria R30.0 Active 03373501 Problem Rash and other R21 Active 729002748 nonspecific skin eruption ALLERGIES Substance Reaction Event Type Date Status Keflex stomach upset/diarrhea Drug Allergy Apr, Active ENCOUNTERS Encounter Location Date Diagnosis [facility] Apr, [place] [id number] [facility] May, [place] [id number] [facility] Apr, Subacute and chronic OBGYN [facility], vulvitis N76.3 and Rash [place] [address] and other nonspecific skin eruption R21 [place] [facility] [address] [facility] Feb, [place] [address] [place], complications B02.9 [place] [id number] [facility] Feb, [place] [id number] [facility] Feb, Lichen planus, unspecified OBGYN [facility], L43.9 ; Other abnormal and [place] [id number] inconclusive findings on diagnostic imaging of breast R92.8 and Dysuria R30.0 [facility] Jan, Other abnormal and OBGYN [facility], inconclusive findings on [place] [id number] diagnostic imaging of breast R92.8 [facility] Jan, [place] [id number] [facility] Jan, Other abnormal and OBGYN [facility], inconclusive findings [place] [id number] diagnostic imaging of breast R92.8 ; Diffuse cystic mastopathy of left breast N60.12 and Diffuse cystic mastopathy of right breast N60.11 [facility] 14 May, 2018 [place] [id number] [facility] May, [place] [id number] [facility] May[facility] examination [place] [id number] (general) (routine) with abnormal findings Z01.411 ; Encounter for screening for malignant neoplasm of colon Z12.11 and Encounter for screening mammogram for malignant neoplasm of breast Z12.31 [place] [facility] Apr, Lichen sclerosus et [facility]BG[facility], atrophicus L90.0 [place] [id number] [facility] Mar, Other abnormal and OBGYN [facility], inconclusive findings [place] [id number] diagnostic imaging of breast R92.8 [place] [facility] Sep, [facility], of left breast N60.12 [place] [id number] [facility] May, [facility], gynecological examination [place] [id number] (general) (routine) with abnormal findings Z01.411 ; [...] of bone density and structure, unspecified M85.9 [facility] Apr, Lichen sclerosus et [facility]BGYN [facility], atrophicus L90.0 [place] [id number] [place] [facility] Mar, Other abnormal [facility], inconclusive findings [place] [id number] diagnostic imaging of breast R92.8 ; Diffuse cystic mastopathy of left breast N60.12 and Diffuse cystic mastopathy of right breast N60.11 [facility] [facility] Feb, [facility] [place] [id number] [facility] Oct, [place] [id number] [facility] [facility] Oct, Other abnormal and [facility]BG[facility], inconclusive findings on [place] [id number] diagnostic imaging of breast R92.8 [facility] [facility] Oct, [facility], mammogram for malignant [place] [id number] neoplasm of breast Z12.31 and Inconclusive mammogram R92.2 [facility] [facility] Jun, [place] [id number] [facility] Apr, [place] [id number] [facility] Apr, [place] [id number] [facility] [facility] Mar, Other abnormal [facility], inconclusive findings on [place] [id number] diagnostic imaging of breast R92.8 [facility] [facility] Mar, [place] [id number] [facility] [facility] Mar, Encounter for [facility], gynecological examination [place] [id number] (general) (routine) with abnormal findings Z01.411 ; Encounter for screening for malignant neoplasm of cervix Z12.4 ; Encounter for screening mammogram for malignant neoplasm of breast Z12.31 ; Encounter for screening for malignant neoplasm of colon Z12.11 ; Lichen sclerosus et atrophicus L90.0 ; Other specified disorders of bone density and structure, unspecified site M85.80 and Melena K92.1 [facility] [facility] Mar, Papulosquamous disorder, OBGYN [facility], unspecified L44.9 and [place] [id number] Noninflammatory disorder of vulva and perineum, unspecified N90.9 [facility] [facility] 18 [place], 2016 Papulosquamous disorder, OBGYN [facility], unspecified L44.9 ; [place] [id number] Encounter for gynecological examination (general) (routine) with abnormal findings Z01.411 ; Encounter for screening mammogram for malignant neoplasm of breast Z12.31 ; Encounter for screening for malignant neoplasm of cervix Z12.4 and Encounter for screening for malignant neoplasm of colon Z12.11 [facility] 11 Mar, 2015 Papulosquamous disorder, OBGYN [facility], unspecified L44.9 [place] [id number] [facility] 10 Jan, 2015 [place] [id number] [facility] Jan, Pelvic and perineal pain [facility], R10.2 [place] [id number] [facility] [facility] Jan, Pelvic and perineal pain O[facility], R10.2 ; Anal spasm K59.4 ; [place] [id number] Papulosquamous disorder, unspecified L44.9 ; Dysuria R30.0 and Abnormal weight loss R63.4 [facility] Dec, [place] [id number] [facility] Oct, [place] [id number] [facility] Oct, Dysuria 788.1 [place] [id number] [place] [facility] [address] [place] [address] Oct, UTI [Urinary tract [address] [place], [facility]] 599.0 and [place] [id number] Lichen planus 697.0 [facility] July, PELVIC PAIN 625.9 and OBGYN [facility], Lichen planus 697.0 [place] [id number] [place] [facility] July, Lichen planus 697.0 [place] [id number] [facility] July, Lichen planus 697.0 [place] [id number] [place] [facility] Jun, Vaginitis 616.10 [place] [id number] [facility] Jun, [place] [id number] [facility] Jun, PELVIC PAIN 625.9 [place] [id number] [facility] Jun, [place] [id number] [facility] Jun, PELVIC PAIN 625.9 ; OBGYN [facility], VAGINAL DISCHARGE 623.5 ; [place] [id number] Lichen planus 697.0 and Blood in stool 578.1 [facility] Mar, [place] [id number] [facility] Mar, ROUTINE HEAT WELDER PLASTICS EXAMINATION O[facility], V72.31 ; SCREEN MALIG [place] [id number] NEOP-COLON V76.51 ; SCREEN MAMMOGRAM NEC V76.12 ; Stricture of vagina 623.2 ; Osteopenia 733.90 and Lichen planus 697.0 [place] [facility] Jun, [place] [id number] [facility] Feb, [place] [id number] [facility] Feb, ROUTINE HEAT WELDER PLASTICS EXAMINATION O[facility], V72.31 ; SCREEN MALIG [place] [id number] NEOP-COLON V76.51 ; SCREEN MAMMOGRAM NEC V76.12 ; Stricture of vagina 623.2 ; Osteopenia 733.90 and Lichen planus 697.0 [facility] Jan, [place] [id number] [facility] Mar, Osteopenia 733.90 [place] [id number] [facility] Mar, [place] [id number] [facility] Mar, Osteopenia 733.90 [place] [id number] [facility] Feb, ROUTINE HEAT WELDER PLASTICS EXAMINATION OBGYN [facility], V72.31 ; PAP SMEAR W/O HEAT WELDER PLASTICS [place] [id number] EXAM V76.2 ; Lichen planus 697.0 and SCREEN MAMMOGRAM NEC V76.12 [facility] Jun, PELVIC PAIN 625.9 and OBGYN [facility], Levator syndrome 564.6 [place] [id number] [facility] Jun, PELVIC PAIN 625.9 [place] [id number] [facility] May, [place] [id number] [facility] May, [place] [id number] [facility] May, [place] [id number] [facility] May, PELVIC PAIN 625.9 ; Lichen OBGYN [facility], planus 697.0 and Levator [place] [id number] syndrome 564.6 [facility] Sep, [place] [id number] [facility] Sep, ROUTINE HEAT WELDER PLASTICS EXAMINATION [facility], V72.31 [place] [id number] [facility] Aug, Ovarian cyst NOS 620.2 and OBGYN [facility], BREAST PAIN 611.71 [place] [id number] [facility] Aug, Ovarian cyst NOS 620.2 [place] [id number] [facility] Jun, Ovarian cyst NOS 620.2 [place] [id number] [facility] Jun, PELVIC PAIN 625.9 and OBGYN [facility], Ovarian cyst NOS 620.2 [place] [id number] [facility] Aug, ROUTINE HEAT WELDER PLASTICS EXAMINATION OBGYN [facility], V72.31 and Lichen planus [place] [id number] 697.0 [facility] Nov, [place] [id number] [facility] Nov, [place] [id number] [facility] Oct, Lichen planus 697.0 [place] [id number] [facility] Sep, [place] [id number] [facility] Sep, Lichen sclerosus et [facility]BGYN [facility], atrophicus 701.0 ; ABN [place] [id number] FINDINGS- ORGANS 793.5 ; Urinary frequency 788.41 and Dysuria 788.1 [facility] [address] Sep, Medical [place] [id number] [facility] Sep, Adnexal mass 625.8 [place] [id number] [facility] [facility] Sep, Adnexal mass 625.8 [place] [id number] [facility] Sep, [place] [id number] [facility] 103 Aug, Adnexal mass 625.8 [place] [id number] [facility] 103 Aug, ROUTINE HEAT WELDER PLASTICS EXAMINATION OBGYN [facility], V72.31 ; Urinary frequency [place] [id number] 788.41 ; ABN FINDINGS- ORGANS 793.5 ; Bloating 787.3 and Fibrocystic disease of breast 610.1 IMMUNIZATIONS No Known Immunizations SOCIAL HISTORY Never Assessed REASON FOR REFERRAL FUNCTIONAL STATUS PLAN OF CARE Activity Details Follow Up vulvar colpo one year Reason: VITAL SIGNS Height 71 in 2019-05-01 Weight 189 lbs 2019-05-01 BMI 26.36 kg/m2 2019-05-01 Blood pressure systolic 150 mm Hg 2019-05-01 Blood pressure diastolic 90 mm Hg 2019-05-01 MEDICATIONS Medication Instructions Dosage Frequency Start End Date Duration Status Date multivitamin orally once a 1 cap(s) 24h Active Multiple Vitamins day Calcium 600+D 600 orally qd 1 tab(s) 24h Active mg-200 units clobetasol applied 1 collin Apr, Active topical 0.05% topically once 2019 weekly, may use BID up to 3 weeks as needed for symptoms Ibuprofen 800 mg Oral tid prn 1 tab 15 days Active levothyroxine 125 orally once a 1 tab(s) 24h Active mcg (0.125 mg) day PROCEDURES Procedure Date Ordered Result Body Site COLPO EXAM OF VULVA W/SCOPE May 01, 2019 RESULTS No Results REASON FOR VISIT Vulvar Colpo Insurance Providers [facility] Member Patient Patient Patient Patient Patient Subscriber Subscriber Subscriber Group Insurance Plan Plan Plan Plan ID Relationship Address Phone Name Date of ID Name Date of No Type Insurance Insurance Insurance Coverage to Subscriber Address Phone Name Dates [place] [phone] [employer] self Cathy [id number] Blue [id number] [address] [place] 5 Cross/Blue [place] Cross/Blue Shield [address] Shield Blue Cross [phone] Blue Cross self Cathy [id number] [phone] Blue [address] 89 [place] 2 2 [facility] [address] MEDICAL (GENERAL) HISTORY Type Description Date Medical History hyperthyroidism (past) Medical History hypothyroidism Medical History OAB Medical History blood transfusion-past Medical History Lichen Planus Medical History GERD Medical History celiac disease Surgical History hernia repair 1963 Surgical History thyroid removed 1973 Surgical History partial hysterectomy & bladder tuck 1989 Surgical History bladder tuck 2002 Surgical History Laparoscopic R oophorectomy 2008 Surgical History [place] Teeth 2008 Surgical History endoscopy 03/01/14 Surgical History colonoscopy 05/08/16 Hospitalization History childbirth Hospitalization History see above Hospitalization History dehydration from colonoscopy 10/16 Hospitalization History pneumonia 2011
--- OUTSIDE RECORDS SUMMARY | 2019-05-18 13:29 | XMS REPORT ---
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 90870347 disorder, unspecified Problem Melena K92.1 Active 1552476 Problem Other abnormal and R92.8 Active 002460252 inconclusive findings on diagnostic imaging of breast Problem Disorder of bone M85.9 Active 47660592 density and structure, unspecified Problem Lichen planus, L43.9 Active 2303780 unspecified Problem Lichen sclerosus et L90.0 Active 64274374 atrophicus Problem Zoster without B02.9 Active 456013480 complications Problem Other specified M85.80 Active 71305865 disorders of bone density and structure, unspecified site Problem Diffuse cystic N60.12 Active 41161758 mastopathy of left breast Problem Diffuse cystic N60.11 Active 04908652 mastopathy of right breast Problem Other fecal R19.5 Active 770067282 abnormalities Problem Dysuria R30.0 Active 87245220 ALLERGIES Substance Reaction Event Type Date Status Keflex stomach upset/diarrhea Drug Allergy Feb, Active ENCOUNTERS Encounter Location Date Diagnosis [facility] 103 May, OBGYN [place], [place] [id number] [facility] 103 Apr, [place] [id number] [place] [address] Feb, [place] [address] [place], complications B02.9 [place] [id number] [facility] 103 Feb, OBGYN [place], [place] [id number] [facility] 103 Feb, Lichen planus, unspecified OBGYN [facility], L43.9 ; Other abnormal and [place] [id number] inconclusive findings on diagnostic imaging of breast R92.8 and Dysuria R30.0 [facility] 103 Jan, Other abnormal and OBGYN [facility], inconclusive findings [place] [id number] diagnostic imaging of breast R92.8 [facility] Jan, OBGYN [place], [place] [id number] [facility] 103 Jan, Other abnormal and OBGYN [facility], inconclusive findings [place] [id number] diagnostic imaging of breast R92.8 ; Diffuse cystic mastopathy of left breast N60.12 and Diffuse cystic mastopathy of right breast N60.11 [facility] 103 14 May, 2018 OBG[place], [place] [id number] [facility] 14 May, 2018 OBG[place], [place] [id number] [facility] 14 May, 2018 [facility] [place] [place] [id number] (general) (routine) with abnormal findings Z01.411 ; Encounter for screening for malignant neoplasm of colon Z12.11 and Encounter for screening mammogram for malignant neoplasm of breast Z12.31 [facility] 19 Apr, 2018 Lichen sclerosus et OBGYN [facility], atrophicus L90.0 [place] [id number] [facility] Mar, Other abnormal and OBGYN [facility], inconclusive findings on [place] [id number] diagnostic imaging of breast R92.8 [facility] 103 Sep, Diffuse cystic mastopathy OBGYN [facility], of left breast N60.12 [place] [id number] [facility] May, Encounter for OBGYN [facility], gynecological examination [place] [id number] (general) (routine) with abnormal findings Z01.411 ; [...] of bone density and structure, unspecified M85.9 [facility] 103 Apr, Lichen sclerosus et OBGYN [facility], atrophicus L90.0 [place] [id number] [facility] 103 Mar, Other abnormal and OBGYN [facility], inconclusive findings [place] [id number] diagnostic imaging of breast R92.8 ; Diffuse cystic mastopathy of left breast N60.12 and Diffuse cystic mastopathy of right breast N60.11 [facility] 103 Feb, OBGYN [place], [place] [id number] [facility] 103 Oct, OBGYN [place] [id number] [facility] 103 Oct, Other abnormal [facility], inconclusive findings [place] [id number] diagnostic imaging of breast R92.8 [facility] Oct, [facility] malignant [place] [id number] neoplasm of breast Z12.31 and Inconclusive mammogram R92.2 [facility] Jun, [facility] [place] [id number] [facility] 103 Apr, [place] [id number] [facility] 103 Apr, [place]BG[place] [id number] [facility] 103 Mar, Other abnormal and [facility], inconclusive findings [place] [id number] diagnostic imaging of breast R92.8 [facility] Mar, [facility] [place] [id number] [facility] 103 Mar, Encounter for [facility], gynecological examination [place] [id number] (general) (routine) with abnormal findings Z01.411 ; Encounter for screening for malignant neoplasm of cervix Z12.4 ; Encounter for screening mammogram for malignant neoplasm of breast Z12.31 ; Encounter for screening for malignant neoplasm of colon Z12.11 ; Lichen sclerosus et atrophicus L90.0 ; Other specified disorders of bone density and structure, unspecified site M85.80 and Melena K92.1 [facility] Mar, Papulosquamous disorder, [facility], unspecified L44.9 and [place] [id number] Noninflammatory disorder of vulva and perineum, unspecified N90.9 [facility] 103 Mar, Papulosquamous disorder, [facility], unspecified L44.9 ; [place] [id number] Encounter for gynecological examination (general) (routine) with abnormal findings Z01.411 ; Encounter for screening mammogram for malignant neoplasm of breast Z12.31 ; Encounter for screening for malignant neoplasm of cervix Z12.4 and Encounter for screening for malignant neoplasm of colon Z12.11 [facility] 103 Mar, Papulosquamous disorder, OBGYN [facility], unspecified L44.9 [place] [id number] [facility] 103 Jan, OBGYN [place], [place] [id number] [facility] 103 Jan, Pelvic and perineal pain OBGYN [facility], R10.2 [place] [id number] [facility] 103 Jan, Pelvic and perineal pain OBGYN [facility], R10.2 ; Anal spasm K59.4 ; [place] [id number] Papulosquamous disorder, unspecified L44.9 ; Dysuria R30.0 and Abnormal weight loss R63.4 [facility] 103 Dec, OBGYN [place], [place] [id number] [facility] 103 Oct, OBG[place], [place] [id number] [facility] 103 Oct, Dysuria 788.1 [place] [id number] [facility] Oct, UTI [Urinary tract OBGYN Road [address] [place], [facility]] 599.0 and [place] [id number] Lichen planus 697.0 [facility] 103 July, PELVIC PAIN 625.9 and OBGYN [facility], Lichen planus 697.0 [place] [id number] [facility] 103 July, Lichen planus 697.0 [place] [id number] [facility] 103 July, Lichen planus 697.0 [place] [id number] [facility] 103 Jun, Vaginitis 616.10 [place]BG[place], [place] [id number] [facility] 103 16 Jun, 2014 [place]BG[place], [place] [id number] [facility] 103 16 Jun, 2014 PELVIC PAIN 625.9 [facility], [place] [id number] [facility] 14 Jun, 2014 OBG[place], [place] [id number] [facility] 103 14 Jun, 2014 PELVIC PAIN 625.9 ; OBGYN [facility], VAGINAL DISCHARGE 623.5 ; [place] [id number] Lichen planus 697.0 and Blood in stool 578.1 [facility] Mar, [place]BG[place] [id number] [facility] Mar, ROUTINE GOLD MARKER EXAMINATION OBGYN [facility], V72.31 ; SCREEN MALIG [place] [id number] NEOP-COLON V76.51 ; SCREEN MAMMOGRAM NEC V76.12 ; Stricture of vagina 623.2 ; Osteopenia 733.90 and Lichen planus 697.0 [facility] 103 08 Jun, 2013 OBGYN [place] [id number] [facility] Feb, [place] [id number] [facility] 103 Feb, ROUTINE GOLD MARKER EXAMINATION OBGYN [facility], V72.31 ; SCREEN MALIG [place] [id number] NEOP-COLON V76.51 ; SCREEN MAMMOGRAM NEC V76.12 ; Stricture of vagina 623.2 ; Osteopenia 733.90 and Lichen planus 697.0 [facility] 103 Jan, [place]BG[place], [place] [id number] [facility] 103 Mar, Osteopenia 733.90 [place], [place] [id number] [facility] 103 Mar, OBG[place], [place] [id number] [facility] 103 Mar, Osteopenia 733.90 [place] [id number] [facility] 103 Feb, ROUTINE GOLD MARKER EXAMINATION OBGYN [facility], V72.31 ; PAP SMEAR W/O GOLD MARKER [place] [id number] EXAM V76.2 ; Lichen planus 697.0 and SCREEN MAMMOGRAM NEC V76.12 [facility] 103 Jun, PELVIC PAIN 625.9 and OBGYN [facility], Levator syndrome 564.6 [place] [id number] [facility] 103 Jun, PELVIC PAIN 625.9 [place] [id number] [facility] 103 May, [place]BG[place], [place] [id number] [facility] 103 May, [place]BG[place], [place] [id number] [facility] 103 May, OBG[place] [id number] [facility] 103 May, PELVIC PAIN 625.9 ; Lichen OBGYN [facility], planus 697.0 and Levator [place] [id number] syndrome 564.6 [facility] 103 Sep, [place]BG[place], [place] [id number] [facility] 103 Sep, ROUTINE GOLD MARKER EXAMINATION OBGYN [facility], V72.31 [place] [id number] [facility] 103 Aug, Ovarian cyst NOS 620.2 and OBGYN [facility], BREAST PAIN 611.71 [place] [id number] [facility] 103 Aug, Ovarian cyst NOS 620.2 [place] [id number] [facility] 103 Jun, Ovarian cyst NOS 620.2 [place], [place] [id number] [facility] 103 Jun, PELVIC PAIN 625.9 and OBGYN [facility], Ovarian cyst NOS 620.2 [place] [id number] [facility] 103 Aug, ROUTINE GOLD MARKER EXAMINATION OBGYN [facility], V72.31 and Lichen planus [place] [id number] 697.0 [facility] 103 Nov, [place]BG[place], [place] [id number] [facility] Nov, [place]BG[place], [place] [id number] [facility] 103 Oct, Lichen planus 697.0 [place] [id number] [facility] 103 Sep, [place]BG[place], [place] [id number] [facility] 103 Sep, Lichen sclerosus et OBGYN [facility], atrophicus 701.0 ; ABN [place] [id number] FINDINGS- ORGANS 793.5 ; Urinary frequency 788.41 and Dysuria 788.[address] [facility] [address] Sep, Medical [place] [id number] [facility] Sep, Adnexal mass 625.8 [place] [id number] [facility] 103 Sep, Adnexal mass 625.8 [place], [place] [id number] [facility] 103 Sep, [place]BG[place], [place] [id number] [facility] 103 Aug, Adnexal mass 625.8 OBGYN [facility], [place] [id number] [facility] 103 29 Aug, 2008 ROUTINE GOLD MARKER EXAMINATION OBGYN [facility], V72.31 ; Urinary frequency [place] [id number] 788.41 ; ABN FINDINGS- ORGANS 793.5 ; Bloating 787.3 and Fibrocystic disease of breast 610.1 IMMUNIZATIONS No Known Immunizations SOCIAL HISTORY Never Assessed REASON FOR REFERRAL FUNCTIONAL STATUS PLAN OF CARE Activity Details Follow Up annual in May, or sooner if symptoms don't resolve Reason: VITAL SIGNS Height 71 in 2019-02-08 Weight 188 lbs 2019-02-08 BMI 26.22 kg/m2 2019-02-08 Blood pressure systolic 128 mm Hg 2019-02-08 Blood pressure diastolic 78 mm Hg 2019-02-08 MEDICATIONS Medication Instructions Dosage Frequency Start End Date Duration Status Date multivitamin orally once a 1 cap(s) 24h Active Multiple Vitamins day Ibuprofen 800 mg Oral tid prn 1 tab 15 days Active Calcium 600+D 600 orally qd 1 tab(s) 24h Active mg-200 units clobetasol applied 1 collin 30 days Active topical 0.05% topically bid x 3 weeks, then weekly. prn levothyroxine 125 orally once a 1 tab(s) 24h Active mcg (0.125 mg) day PROCEDURES Procedure Date Ordered Result Body Site URINE-NO MICRO Feb 08, 2019 RESULTS Name Result Date Reference Range Urine dip Glucose blood + protein 0.3 Nitrite + Leuko 70+ Urobilinogen Keytone Bilirubin pH URINE CULTURE 2019-02-08 URINE CULTURE URETHRAL AMANDA REASON FOR VISIT vulvar pain and breast FNA f/u Insurance Providers [facility] Member Patient Patient Patient Patient Patient Subscriber Subscriber Subscriber Group Insurance Plan Plan Plan Plan ID Relationship Address Phone Name Date of ID Name Date of No Type Insurance Insurance Insurance Coverage to Subscriber Address Phone Name Dates Blue Cross [address] Blue Cross self Cathy [id number] Blue [id number] 89 [place] 2 2 [place] [address] [employer] [address] [employer] self [place] [id number] 89 [place] 5 Cross/Blue [place] Cross/Blue Shield [address] [facility] MEDICAL (GENERAL) HISTORY Type Description Date Medical History hyperthyroidism (past) Medical History hypothyroidism Medical History OAB Medical History blood transfusion-past Medical History Lichen Planus Medical History acid refluc Medical History celiac disease Surgical History hernia repair 1963 Surgical History thyroid removed 1974 Surgical History partial hysterectomy & bladder tuck 1989 Surgical History bladder tuck 2002 Surgical History Laparoscopic R oophorectomy 2008 Surgical History [place] Teeth 2008 Surgical History endoscopy 03/01/14 Surgical History colonoscopy 05/08/16 Hospitalization History childbirth Hospitalization History see above Hospitalization History dehydration from colonoscopy 10/16 Hospitalization History pneumonia 2011
--- OUTSIDE RECORDS SUMMARY | 2019-05-18 13:29 | XMS REPORT ---
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, unspecified Problem Melena K92.1 Active 3780090 Problem Other abnormal and R92.8 Active 781040302 inconclusive findings on diagnostic imaging of breast Problem Disorder of bone M85.9 Active 43559107 density and structure, unspecified Problem Lichen planus, L43.9 Active 9256850 unspecified Problem Lichen sclerosus et L90.0 Active 98958683 atrophicus Problem [place] without B02.9 Active 841545375 complications Problem Other specified M85.80 Active 80178457 disorders of bone density and structure, unspecified site Problem Diffuse cystic N60.12 Active 60085824 mastopathy of left breast Problem Diffuse cystic N60.11 Active 08314270 mastopathy of right breast Problem Other fecal R19.5 Active 310542674 abnormalities Problem Dysuria R30.0 Active 95970351 ALLERGIES No Information ENCOUNTERS Encounter Location Date Diagnosis [facility] [address] 17 May, 2019 [place] [id number] [facility] Apr, [place] [id number] [place] [facility] Feb, [place] [address] [place], complications B02.9 [place] [id number] [facility] Feb, [place] [id number] [facility] Feb, Lichen planus, unspecified [facility], L43.9 ; Other abnormal and [place] [id number] inconclusive findings on diagnostic imaging of breast R92.8 and Dysuria R30.0 [place] [facility] Jan, Other abnormal and [facility], inconclusive findings [place] [id number] diagnostic imaging of breast R92.8 [facility] Jan, [place] [id number] [facility] 103 Jan, Other abnormal and [facility], inconclusive findings on [place] [id number] diagnostic imaging of breast R92.8 ; Diffuse cystic mastopathy of left breast N60.12 and Diffuse cystic mastopathy of right breast N60.11 [facility] 103 14 May, 2018 [place] [id number] [facility] 103 14 May, 2018 [place] [id number] [facility] 14 May, [facility] [place] [id number] (general) (routine) with abnormal findings Z01.411 ; Encounter for screening for malignant neoplasm of colon Z12.11 and Encounter for screening mammogram for malignant neoplasm of breast Z12.31 [facility] 19 Apr, 2018 Lichen sclerosus et [facility], atrophicus L90.[id number] [facility] 103 Mar, Other abnormal and [facility], inconclusive findings [place] [id number] diagnostic imaging of breast R92.8 [facility] Sep, Diffuse [facility] of left breast N60.[id number] [facility] May, [facility] examination [place] [id number] (general) (routine) with abnormal findings Z01.411 ; [...] of bone density and structure, unspecified M85.9 [facility] 103 Apr, Lichen sclerosus et [facility], atrophicus L90.0 [place] [id number] [facility] 103 Mar, Other abnormal and [facility] inconclusive findings on [place] [id number] diagnostic imaging of breast R92.8 ; Diffuse cystic mastopathy of left breast N60.12 and Diffuse cystic mastopathy of right breast N60.11 [facility] Feb, [place] [id number] [facility] Oct, [place] [id number] [place] [facility] 103 Oct, Other abnormal and [facility], inconclusive findings [place] [id number] diagnostic imaging of breast R92.8 [facility] Oct, [facility] mammogram for malignant [place] [id number] neoplasm of breast Z12.31 and Inconclusive mammogram R92.2 [place] [facility] Jun, [place] [id number] [facility] Apr, [place] [id number] [place] [facility] Apr, [place] [id number] [place] [facility] 103 Mar, Other abnormal and [facility], inconclusive findings on [place] [id number] diagnostic imaging of breast R92.8 [place] [facility] Mar, [place] [id number] [place] [facility] Mar, Encounter for [facility], gynecological examination [place] [id number] (general) (routine) with abnormal findings Z01.411 ; Encounter for screening for malignant neoplasm of cervix Z12.4 ; Encounter for screening mammogram for malignant neoplasm of breast Z12.31 ; Encounter for screening for malignant neoplasm of colon Z12.11 ; Lichen sclerosus et atrophicus L90.0 ; Other specified disorders of bone density and structure, unspecified site M85.80 and Melena K92.1 [place] [facility] Mar, Papulosquamous disorder, [facility], unspecified L44.9 and [place] [id number] Noninflammatory disorder of vulva and perineum, unspecified N90.9 [place] [facility] 103 Mar, Papulosquamous disorder, [facility], unspecified L44.9 ; [place] [id number] Encounter for gynecological examination (general) (routine) with abnormal findings Z01.411 ; Encounter for screening mammogram for malignant neoplasm of breast Z12.31 ; Encounter for screening for malignant neoplasm of cervix Z12.4 and Encounter for screening for malignant neoplasm of colon Z12.11 [place] [facility] 103 Mar, Papulosquamous disorder, [facility], unspecified L44.9 [place] [id number] [place] [facility] Jan, [place] [id number] [place] [facility] 103 Jan, Pelvic and perineal pain [facility], R10.2 [place] [id number] [facility] Jan, Pelvic and perineal pain [facility], R10.2 ; Anal spasm K59.4 ; [place] [id number] Papulosquamous disorder, unspecified L44.9 ; Dysuria R30.0 and Abnormal weight loss R63.4 [place] [facility] Dec, [place] [id number] [facility] Oct, [place] [id number] [facility] Oct, Dysuria 788.1 [place] [id number] [address] Oct, UTI [Urinary tract OBGYN Road [address] [place], infection] 599.0 and [place] [id number] Lichen planus 697.0 [place] [facility] July, PELVIC PAIN 625.9 and [facility], Lichen planus 697.0 [place] [id number] [place] [facility] 103 July, Lichen planus 697.0 [place] [id number] [place] [facility] July, Lichen planus 697.0 [place] [id number] [place] [facility] 103 Jun, Vaginitis 616.10 [place] [id number] [place] [facility] 103 16 Jun, 2014 [place]BG[place], [place] [id number] [place] [facility] 16 Jun, 2014 PELVIC PAIN 625.9 [place], [place] [id number] [facility] 14 Jun, 2014 [place] [id number] [place] [facility] 103 14 Jun, 2014 PELVIC PAIN 625.9 ; [facility], VAGINAL DISCHARGE 623.5 ; [place] [id number] Lichen planus 697.0 and Blood in stool 578.1 [place] [facility] Mar, [place] [id number] [facility] 103 Mar, ROUTINE POTATO PANCAKE FRIER EXAMINATION [facility], V72.31 ; SCREEN MALIG [place] [id number] NEOP-COLON V76.51 ; SCREEN MAMMOGRAM NEC V76.12 ; Stricture of vagina 623.2 ; Osteopenia 733.90 and Lichen planus 697.0 [facility] 08 Jun, 2013 OBG[place], [place] [id number] [facility] 103 Feb, [place] [id number] [facility] Feb, ROUTINE POTATO PANCAKE FRIER EXAMINATION [facility], V72.31 ; SCREEN MALIG [place] [id number] NEOP-COLON V76.51 ; SCREEN MAMMOGRAM NEC V76.12 ; Stricture of vagina 623.2 ; Osteopenia 733.90 and Lichen planus 697.0 [place] [facility] Jan, [place] [id number] [facility] Mar, Osteopenia 733.90 [place] [id number] [place] [facility] Mar, [place] [id number] [place] [facility] Mar, Osteopenia 733.90 [place] [id number] [place] [facility] 103 Feb, ROUTINE POTATO PANCAKE FRIER EXAMINATION [facility], V72.31 ; PAP SMEAR W/O POTATO PAN[place]KE FRIER [place] [id number] EXAM V76.2 ; Lichen planus 697.0 and SCREEN MAMMOGRAM NEC V76.12 [place] [facility] Jun, PELVIC PAIN 625.9 and [facility], Levator syndrome 564.6 [place] [id number] [place] [facility] Jun, PELVIC PAIN 625.9 [place] [id number] [place] [facility] May, [place] [id number] [place] [facility] May, [place] [id number] [place] [facility] May, [place] [id number] [place] [facility] May, PELVIC PAIN 625.9 ; Lichen [facility], planus 697.0 and Levator [place] [id number] syndrome 564.6 [place] [facility] Sep, [place] [id number] [place] [facility] Sep, ROUTINE POTATO PANCAKE FRIER EXAMINATION [facility], V72.31 [place] [id number] [place] [facility] Aug, Ovarian cyst NOS 620.2 and [facility], BREAST PAIN 611.71 [place] [id number] [place] [facility] Aug, Ovarian cyst NOS 620.2 [place] [id number] [place] [facility] Jun, Ovarian cyst NOS 620.2 [place], [place] [id number] [place] [facility] Jun, PELVIC PAIN 625.9 and [facility], Ovarian cyst NOS 620.2 [place] [id number] [place] [facility] Aug, ROUTINE POTATO PANCAKE FRIER EXAMINATION [facility], V72.31 and Lichen planus [place] [id number] 697.0 [place] [facility] Nov, [place], [place] [id number] [place] [facility] Nov, [place] [id number] [place] [facility] Oct, Lichen planus 697.0 [place] [id number] [place] [facility] Sep, [place], [place] [id number] [place] [facility] Sep, Lichen sclerosus et [facility], atrophicus 701.0 ; ABN [place] [id number] FINDINGS- ORGANS 793.5 ; Urinary frequency 788.41 and Dysuria 788.[address] [facility] [address] Sep, [facility] [place] [id number] [place] [facility] Sep, Adnexal mass 625.8 [place] [id number] [place] [facility] Sep, Adnexal mass 625.8 [place], [place] [id number] [place] [facility] Sep, [place] [id number] [place] [facility] 103 Aug, Adnexal mass 625.8 [place], [place] [id number] [facility] 103 29 Aug, 2008 ROUTINE POTATO PANCAKE FRIER EXAMINATION [facility], V72.31 ; Urinary frequency [place] [id number] 788.41 ; ABN FINDINGS- ORGANS 793.5 ; Bloating 787.3 and Fibrocystic disease of breast 610.1 IMMUNIZATIONS No Known Immunizations SOCIAL HISTORY Never Assessed REASON FOR REFERRAL FUNCTIONAL STATUS PLAN OF CARE VITAL SIGNS MEDICATIONS Unknown Medications PROCEDURES No Known procedures RESULTS No Results REASON FOR VISIT Re:Breast imaging Insurance Providers [facility] Patient Patient Patient Patient Patient Subscriber Subscriber Subscriber Group Insurance Plan Plan Plan Plan ID Relationship Address Phone Name Date of ID Name Date of No Type Insurance Insurance Insurance Coverage to Subscriber Address Phone Name Dates [place] [address] [place] self [place] [id number] Blue 15505 89 [place] 5 Cross/[place] Cross/Blue Shield [id number] Shield Blue Cross [address] Blue Cross self [place] [id number] Blue 10704 89 [place] 2 2 Shield Y [facility] [address] MEDICAL (GENERAL) HISTORY Type Description Date Medical History hyperthyroidism (past) Medical History hypothyroidism Medical History OAB Medical History blood transfusion-past Medical History Lichen Planus Medical History acid refluc Medical History celiac disease Surgical History hernia repair 1963 Surgical History thyroid removed 1974 Surgical History partial hysterectomy & bladder tuck 1989 Surgical History bladder tuck 2002 Surgical History Laparoscopic R oophorectomy 2008 Surgical History [place] Teeth 2009 Surgical History endoscopy 03/01/14 Surgical History colonoscopy 05/08/16 Hospitalization History childbirth Hospitalization History see above Hospitalization History dehydration from colonoscopy 10/16 Hospitalization History pneumonia 2011
--- OUTSIDE RECORDS SUMMARY | 2019-05-18 13:29 | XMS REPORT ---
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 34024730 disorder, unspecified Problem Melena K92.1 Active 4187773 Problem Other abnormal and R92.8 Active 083096899 inconclusive findings on diagnostic imaging of breast Problem Disorder of bone M85.9 Active 27341064 density and structure, unspecified Problem Lichen planus, L43.9 Active 2680822 unspecified Problem Lichen sclerosus et L90.0 Active 66322473 atrophicus Problem Zoster without B02.9 Active 365273267 complications Problem Other specified M85.80 Active 86303320 disorders of bone density and structure, unspecified site Problem Diffuse cystic N60.12 Active 13780915 mastopathy of left breast Problem Diffuse cystic N60.11 Active 01253604 mastopathy of right breast Problem Other fecal R19.5 Active 209112744 abnormalities Problem Dysuria R30.0 Active 25554539 ALLERGIES No Information ENCOUNTERS Encounter Location Date Diagnosis [facility] 103 17 May, 2019 OBGYN [place] [id number] [facility] Apr, OBGYN [place] [id number] [place] [address] Feb, [place] [address] [place], complications B02.9 [place] [id number] [facility] Feb, OBGYN [place], [place] [id number] [facility] Feb, Lichen planus, unspecified OBGYN [facility], L43.9 ; Other abnormal and [place] [id number] inconclusive findings on diagnostic imaging of breast R92.8 and Dysuria R30.0 [facility] Jan, Other abnormal and OBGYN [facility], inconclusive findings [place] [id number] diagnostic imaging of breast R92.8 [facility] 103 Jan, OBGYN [place] [id number] [facility] 103 Jan, Other abnormal and OBGYN [facility], inconclusive findings on [place] [id number] diagnostic imaging of breast R92.8 ; Diffuse cystic mastopathy of left breast N60.12 and Diffuse cystic mastopathy of right breast N60.11 [facility] 103 14 May, 2018 OBGYN [place] [id number] [facility] 14 May, 2018 OBG[place] [id number] [facility] 103 14 May, [facility] [place] [id number] (general) (routine) with abnormal findings Z01.411 ; Encounter for screening for malignant neoplasm of colon Z12.11 and Encounter for screening mammogram for malignant neoplasm of breast Z12.31 [facility] 19 Apr, 2018 Lichen sclerosus et OBGYN [facility], atrophicus L90.0 [place] [id number] [facility] 103 Mar, Other abnormal and OBGYN [facility], inconclusive findings [place] [id number] diagnostic imaging of breast R92.8 [facility] 103 Sep, Diffuse cystic [facility]opathy [facility], of left breast N60.12 [place] [id number] [facility] May, [facility] examination [place] [id number] (general) (routine) with abnormal findings Z01.411 ; [...] of bone density and structure, unspecified M85.9 [facility] 103 Apr, Lichen sclerosus et OBGYN [facility], atrophicus L90.0 [place] [id number] [facility] 103 Mar, Other abnormal [facility], inconclusive findings [place] [id number] diagnostic imaging of breast R92.8 ; Diffuse cystic mastopathy of left breast N60.12 and Diffuse cystic mastopathy of right breast N60.11 [facility] Feb, OBGYN [place] [id number] [facility] Oct, OBG[place] [id number] [facility] 103 Oct, Other abnormal and [facility], inconclusive findings [place] [id number] diagnostic imaging of breast R92.8 [facility] Oct, [facility], mammogram for malignant [place] [id number] neoplasm of breast Z12.31 and Inconclusive mammogram R92.2 [facility] Jun, [place]BG[place] [id number] [facility] Apr, [place]BG[place] [id number] [facility] Apr, [place] [id number] [facility] 103 Mar, Other abnormal and [facility], inconclusive findings on [place] [id number] diagnostic imaging of breast R92.8 [facility] Mar, [place] [id number] [facility] 103 Mar, Encounter for [facility], gynecological examination [place] [id number] (general) (routine) with abnormal findings Z01.411 ; Encounter for screening for malignant neoplasm of cervix Z12.4 ; Encounter for screening mammogram for malignant neoplasm of breast Z12.31 ; Encounter for screening for malignant neoplasm of colon Z12.11 ; Lichen sclerosus et atrophicus L90.0 ; Other specified disorders of bone density and structure, unspecified site M85.80 and Melena K92.1 [facility] Mar, Papulosquamous disorder, [facility], unspecified L44.9 and [place] [id number] Noninflammatory disorder of vulva and perineum, unspecified N90.9 [facility] 103 Mar, Papulosquamous disorder, [facility], unspecified L44.9 ; [place] [id number] Encounter for gynecological examination (general) (routine) with abnormal findings Z01.411 ; Encounter for screening mammogram for malignant neoplasm of breast Z12.31 ; Encounter for screening for malignant neoplasm of cervix Z12.4 and Encounter for screening for malignant neoplasm of colon Z12.11 [facility] 103 Mar, Papulosquamous disorder, OBGYN [facility], unspecified L44.9 [place] [id number] [facility] Jan, OBGYN [place] [id number] [facility] 103 Jan, Pelvic and perineal pain OBGYN [facility], R10.2 [place] [id number] [facility] Jan, Pelvic and perineal pain OBGYN [facility], R10.2 ; Anal spasm K59.4 ; [place] [id number] Papulosquamous disorder, unspecified L44.9 ; Dysuria R30.0 and Abnormal weight loss R63.4 [facility] Dec, OBGYN [place] [id number] [facility] Oct, [place] [id number] [facility] Oct, Dysuria 788.1 OBGYN [place] [id number] [address] Oct, UTI [Urinary tract OBGYN Road [address] [place], infection] 599.0 and [place] [id number] Lichen planus 697.0 [facility] July, PELVIC PAIN 625.9 and OBGYN [facility], Lichen planus 697.0 [place] [id number] [facility] 103 July, Lichen planus 697.0 OBGYN [place] [id number] [facility] July, Lichen planus 697.0 OBGYN [place] [id number] [facility] 103 Jun, Vaginitis 616.10 OBGYN [place], [place] [id number] [facility] 103 16 Jun, 2014 OBGYN [place], [place] [id number] [facility] 16 Jun, 2014 PELVIC PAIN 625.9 OBGYN [place] [id number] [facility] 103 14 Jun, 2014 OBG[place] [id number] [facility] 103 14 Jun, 2014 PELVIC PAIN 625.9 ; OBGYN [facility], VAGINAL DISCHARGE 623.5 ; [place] [id number] Lichen planus 697.0 and Blood in stool 578.1 [facility] Mar, OBGYN [place], [place] [id number] [facility] Mar, ROUTINE LEAD ENGINEER EXAMINATION OBGYN [facility], V72.31 ; SCREEN [place] [id number] NEOP-COLON V76.51 ; SCREEN MAMMOGRAM NEC V76.12 ; Stricture of vagina 623.2 ; Osteopenia 733.90 and Lichen planus 697.0 [facility] 103 08 Jun, 2013 OBGYN [place] [id number] [facility] 103 Feb, O[place] [id number] [facility] 103 Feb, ROUTINE LEAD ENGINEER EXAMINATION OBGYN [facility], V72.31 ; SCREEN [place] [id number] NEOP-COLON V76.51 ; SCREEN MAMMOGRAM NEC V76.12 ; Stricture of vagina 623.2 ; Osteopenia 733.90 and Lichen planus 697.0 [facility] Jan, OBGYN [place] [id number] [facility] Mar, Osteopenia 733.90 [place] [id number] [facility] Mar, OBG[place] [id number] [facility] 103 Mar, Osteopenia 733.90 O[place], [place] [id number] [facility] Feb, ROUTINE LEAD ENGINEER EXAMINATION OBGYN [facility], V72.31 ; PAP SMEAR W/O LEAD ENGINEER [place] [id number] EXAM V76.2 ; Lichen planus 697.0 and SCREEN MAMMOGRAM NEC V76.12 [facility] Jun, PELVIC PAIN 625.9 and OBGYN [facility], Levator syndrome 564.6 [place] [id number] [facility] Jun, PELVIC PAIN 625.9 [place] [id number] [facility] 103 May, O[place] [id number] [facility] 103 May, OBG[place], [place] [id number] [facility] May, [place] [id number] [facility] 103 May, PELVIC PAIN 625.9 ; Lichen OBGYN [facility], planus 697.0 and [place] [id number] syndrome 564.6 [facility] Sep, [place] [id number] [facility] Sep, ROUTINE LEAD ENGINEER EXAMINATION OBGYN [facility], V72.31 [place] [id number] [facility] 103 Aug, Ovarian cyst NOS 620.2 and OBGYN [facility], BREAST PAIN 611.71 [place] [id number] [facility] Aug, Ovarian cyst NOS 620.2 [place] [id number] [facility] 103 Jun, Ovarian cyst NOS 620.2 O[place] [id number] [facility] 103 Jun, PELVIC PAIN 625.9 and OBGYN [facility], Ovarian cyst NOS 620.2 [place] [id number] [facility] 103 Aug, ROUTINE LEAD ENGINEER EXAMINATION OBGYN [facility], V72.31 and Lichen planus [place] [id number] 697.0 [facility] 103 Nov, [place] [id number] [facility] Nov, [place], [place] [id number] [facility] 103 Oct, Lichen planus 697.0 [place] [id number] [facility] Sep, [place] [id number] [facility] Sep, Lichen sclerosus et OBGYN [facility], atrophicus 701.0 ; ABN [place] [id number] FINDINGS- ORGANS 793.5 ; Urinary frequency 788.41 and Dysuria 788.1 [facility] [address] Sep, [facility] [place] [id number] [facility] Sep, Adnexal mass 625.8 [place] [id number] [facility] 103 Sep, Adnexal mass 625.8 [place], [place] [id number] [facility] 103 Sep, O[place] [id number] [facility] 103 Aug, Adnexal mass 625.8 O[place]YN [place], [place] [id number] [facility] 103 29 Aug, 2008 ROUTINE LEAD ENGINEER EXAMINATION OBGYN [facility], V72.31 ; Urinary frequency [place] [id number] 788.41 ; ABN FINDINGS- ORGANS 793.5 ; Bloating 787.3 and Fibrocystic disease of breast 610.1 IMMUNIZATIONS No Known Immunizations SOCIAL HISTORY Never Assessed REASON FOR REFERRAL FUNCTIONAL STATUS PLAN OF CARE VITAL SIGNS MEDICATIONS Unknown Medications PROCEDURES No Known procedures RESULTS No Results REASON FOR VISIT Diagnostic Heraclio mammo and US- 09/2018 Insurance Providers [facility] Member Patient Patient Patient Patient Patient Subscriber Subscriber Subscriber Group Insurance Plan Plan Plan Plan ID Relationship Address Phone Name Date of ID Name Date of No Type Insurance Insurance Insurance Coverage to Subscriber Address Phone Name Dates Blue [employer] [phone] Blue Cross self Cathy [id number] Blue [id number] [address] [place] 2 2 Shield [facility] [address] [place] [phone] [employer] self Cathy [id number] Blue [id number] 89 [place] 5 [place] Cross/Blue Shield [address] Shield MEDICAL (GENERAL) HISTORY Type Description Date [...] History Laparoscopic R oophorectomy 2008 Surgical History [place] Teeth 2008 Surgical History endoscopy 03/01/14 Surgical History colonoscopy 05/08/16 Hospitalization History childbirth Hospitalization History see above Hospitalization History dehydration from colonoscopy 10/16 Hospitalization History pneumonia 2011
--- OUTSIDE RECORDS SUMMARY | 2019-05-18 13:29 | XMS REPORT ---
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, unspecified Problem Melena K92.1 Active 6107606 Problem Other abnormal and R92.8 Active 065464251 inconclusive findings on diagnostic imaging of breast Problem Disorder of bone M85.9 Active 38610139 density and structure, unspecified Problem Lichen planus, L43.9 Active 3601036 unspecified Problem Lichen sclerosus et L90.0 Active 57254330 atrophicus Problem [place] without B02.9 Active 180968466 complications Problem Other specified M85.80 Active 98892246 disorders of bone density and structure, unspecified site Problem Diffuse cystic N60.12 Active 82094123 mastopathy of left breast Problem Diffuse cystic N60.11 Active 39857024 mastopathy of right breast Problem Other fecal R19.5 Active 131267052 abnormalities Problem Dysuria R30.0 Active 94112882 ALLERGIES No Information ENCOUNTERS Encounter Location Date Diagnosis [facility] [address] 17 May, 2019 [place] [id number] [facility] Apr, O[place], [place] [id number] [place] [facility] Feb, [place] [address] [place], complications B02.9 [place] [id number] [facility] Feb, [place]BG[place] [id number] [facility] Feb, Lichen planus, unspecified OBGYN [facility], L43.9 ; Other abnormal and [place] [id number] inconclusive findings on diagnostic imaging of breast R92.8 and Dysuria R30.0 [place] [facility] Jan, Other abnormal and OBGYN [facility], inconclusive findings on [place] [id number] diagnostic imaging of breast R92.8 [facility] Jan, OBGYN [place], [place] [id number] [facility] 103 Jan, Other abnormal and OBGYN [facility], inconclusive findings on [place] [id number] diagnostic imaging of breast R92.8 ; Diffuse cystic mastopathy of left breast N60.12 and Diffuse cystic mastopathy of right breast N60.11 [facility] 103 14 May, 2018 OBGYN [place], [place] [id number] [facility] 103 14 May, 2018 [place]BG[place] [id number] [facility] 14 May, [facility] [place] [id number] (general) (routine) with abnormal findings Z01.411 ; Encounter for screening for malignant neoplasm of colon Z12.11 and Encounter for screening mammogram for malignant neoplasm of breast Z12.31 [facility] 19 Apr, 2018 Lichen sclerosus et OBGYN [facility], atrophicus L90.[address] [place] [id number] [facility] 103 Mar, Other abnormal and OBGYN [facility], inconclusive findings [place] [id number] diagnostic imaging of breast R92.[address] [facility] Sep, [facility] of [place] breast N60.[address] [place] [id number] [facility] May, [facility] gynecological examination [place] [id number] (general) (routine) with abnormal findings Z01.411 ; [...] of bone density and structure, unspecified M85.9 [facility] 103 Apr, Lichen sclerosus et OBGYN [facility], atrophicus L90.0 [place] [id number] [facility] 103 Mar, Other abnormal and [facility], inconclusive findings [place] [id number] diagnostic imaging of breast R92.8 ; Diffuse cystic mastopathy of left breast N60.12 and Diffuse cystic mastopathy of right breast N60.[address] [facility] Feb, [place] [id number] [facility] Oct, [place] [id number] [place] [facility] 103 Oct, Other abnormal and [facility], inconclusive findings [place] [id number] diagnostic imaging of breast R92.[address] [facility] Oct, [facility], mammogram for malignant [place] [id number] neoplasm of breast Z12.31 and Inconclusive mammogram R92.2 [place] [facility] Jun, [place]BG[place] [id number] [facility] Apr, [place], [place] [id number] [place] [facility] Apr, [place], [place] [id number] [place] [facility] 103 Mar, Other abnormal and [facility], inconclusive findings on [place] [id number] diagnostic imaging of breast R92.8 [place] [facility] Mar, [place] [id number] [place] [facility] Mar, Encounter for [facility], gynecological examination [place] [id number] (general) (routine) with abnormal findings Z01.411 ; Encounter for screening for malignant neoplasm of cervix Z12.4 ; Encounter for screening mammogram for malignant neoplasm of breast Z12.31 ; Encounter for screening for malignant neoplasm of colon Z12.11 ; Lichen sclerosus et atrophicus L90.0 ; Other specified disorders of bone density and structure, unspecified site M85.80 and Melena K92.1 [place] [facility] Mar, Papulosquamous disorder, [facility], unspecified L44.9 and [place] [id number] Noninflammatory disorder of vulva and perineum, unspecified N90.9 [place] [facility] 103 Mar, Papulosquamous disorder, [facility], unspecified L44.9 ; [place] [id number] Encounter for gynecological examination (general) (routine) with abnormal findings Z01.411 ; Encounter for screening mammogram for malignant neoplasm of breast Z12.31 ; Encounter for screening for malignant neoplasm of cervix Z12.4 and Encounter for screening for malignant neoplasm of colon Z12.11 [place] [facility] Mar, Papulosquamous disorder, OBGYN [facility], unspecified L44.9 [place] [id number] [place] [facility] Jan, [place]BG[place] [id number] [place] [facility] Jan, Pelvic and perineal pain OBGYN [facility], R10.2 [place] [id number] [facility] Jan, Pelvic and perineal pain OBGYN [facility], R10.2 ; Anal spasm K59.4 ; [place] [id number] Papulosquamous disorder, unspecified L44.9 ; Dysuria R30.0 and Abnormal weight loss R63.4 [place] [facility] Dec, [place]BG[place] [id number] [facility] Oct, [place] [id number] [facility] Oct, Dysuria 788.1 OBGYN [place] [id number] [address] Oct, UTI [Urinary tract OBGYN [address] [place], infection] 599.0 and [place] [id number] Lichen planus 697.0 [place] [facility] July, PELVIC PAIN 625.9 and OBGYN [facility], Lichen planus 697.0 [place] [id number] [place] [facility] July, Lichen planus 697.0 [place] [id number] [place] [facility] July, Lichen planus 697.0 [place], [place] [id number] [place] [facility] Jun, Vaginitis 616.10 [place] [id number] [place] [facility] 103 16 Jun, 2014 OBG[place], [place] [id number] [place] [facility] 16 Jun, 2014 PELVIC PAIN 625.9 [place], [place] [id number] [facility] 14 Jun, 2014 [place], [place] [id number] [place] [facility] 103 14 Jun, 2014 PELVIC PAIN 625.9 ; OBGYN [facility], VAGINAL DISCHARGE 623.5 ; [place] [id number] Lichen planus 697.0 and Blood in stool 578.1 [place] [facility] Mar, OBG[place] [id number] [facility] Mar, ROUTINE FARM TRACTOR MECHANIC EXAMINATION OBGYN [facility], V72.31 ; SCREEN MALIG [place] [id number] NEOP-COLON V76.51 ; SCREEN MAMMOGRAM NEC V76.12 ; Stricture of vagina 623.2 ; Osteopenia 733.90 and Lichen planus 697.0 [facility] 103 08 Jun, 2013 OBGYN [place], [place] [id number] [facility] Feb, [place] [id number] [facility] Feb, ROUTINE FARM TRACTOR MECHANIC EXAMINATION OBGYN [facility], V72.31 ; SCREEN MALIG [place] [id number] NEOP-COLON V76.51 ; SCREEN MAMMOGRAM NEC V76.12 ; Stricture of vagina 623.2 ; Osteopenia 733.90 and Lichen planus 697.0 [place] [facility] Jan, [place] [id number] [facility] Mar, Osteopenia 733.90 [place] [id number] [place] [facility] Mar, [place] [id number] [place] [facility] Mar, Osteopenia 733.90 [place] [id number] [place] [facility] 103 Feb, ROUTINE FARM TRACTOR MECHANIC EXAMINATION OBGYN [facility], V72.31 ; PAP SMEAR W/O FARM TRACTOR MECHANIC [place] [id number] EXAM V76.2 ; Lichen planus 697.0 and SCREEN MAMMOGRAM NEC V76.12 [place] [facility] Jun, PELVIC PAIN 625.9 and OBGYN [facility], Levator syndrome 564.6 [place] [id number] [place] [facility] Jun, PELVIC PAIN 625.9 [place] [id number] [facility] [facility] May, [place], [place] [id number] [place] [facility] May, [place], [place] [id number] [place] [facility] May, [place], [place] [id number] [facility] [facility] 103 May, PELVIC PAIN 625.9 ; Lichen OBGYN [facility], planus 697.0 and Levator [place] [id number] syndrome 564.6 [place] [facility] Sep, [place], [place] [id number] [place] [facility] Sep, ROUTINE FARM TRACTOR MECHANIC EXAMINATION OBGYN [facility], V72.31 [place] [id number] [place] [facility] Aug, Ovarian cyst NOS 620.2 and OBGYN [facility], BREAST PAIN 611.71 [place] [id number] [place] [facility] Aug, Ovarian cyst NOS 620.2 [place] [id number] [place] [facility] Jun, Ovarian cyst NOS 620.2 [place] [id number] [place] [facility] Jun, PELVIC PAIN 625.9 and OBGYN [facility], Ovarian cyst NOS 620.2 [place] [id number] [place] [facility] 103 Aug, ROUTINE FARM TRACTOR MECHANIC EXAMINATION OBGYN [facility], V72.31 and Lichen planus [place] [id number] 697.0 [place] [facility] Nov, [place], [place] [id number] [place] [facility] Nov, [place] [id number] [facility] [facility] Oct, Lichen planus 697.0 [place], [place] [id number] [facility] [facility] Sep, [place] [id number] [facility] [facility] Sep, Lichen sclerosus et OBGYN [facility], atrophicus 701.0 ; ABN [place] [id number] FINDINGS- ORGANS 793.5 ; Urinary frequency 788.41 and Dysuria 788.[address] [facility] [address] Sep, [facility] [place] [id number] [facility] [facility] Sep, Adnexal mass 625.8 [place] [id number] [facility] [facility] Sep, Adnexal mass 625.8 [place], [place] [id number] [facility] [facility] Sep, [place] [id number] [facility] [facility] 103 Aug, Adnexal mass 625.8 O[place], [place] [id number] [facility] 103 29 Aug, 2008 ROUTINE FARM TRACTOR MECHANIC EXAMINATION OBGYN [facility], V72.31 ; Urinary frequency [place] [id number] 788.41 ; ABN FINDINGS- ORGANS 793.5 ; Bloating 787.3 and Fibrocystic disease of breast 610.1 IMMUNIZATIONS No Known Immunizations SOCIAL HISTORY Never Assessed REASON FOR REFERRAL FUNCTIONAL STATUS PLAN OF CARE VITAL SIGNS MEDICATIONS Unknown Medications PROCEDURES No Known procedures RESULTS No Results REASON FOR VISIT Needs bilat breast biopsies Insurance Providers [facility] Member Patient Patient Patient Patient Patient Subscriber Subscriber Subscriber Group Insurance Plan Plan Plan Plan ID Relationship Address Phone Name Date of ID Name Date of No Type Insurance Insurance Insurance Coverage to Subscriber Address Phone Name Dates Blue [employer] [phone] Blue Cross self Cathy [id number] [phone] Blue [id number] 89 [place] 2 2 Shield [facility] [address] [place] [address] [place] self Cathy [id number] Blue [id number] 89 [place] 5 Cross/[place] Cross/Blue Shield [address] Shield MEDICAL (GENERAL) HISTORY Type Description Date [...] History Laparoscopic R oophorectomy 2008 Surgical History [place] Teeth 2009 Surgical History endoscopy 03/01/14 Surgical History colonoscopy 05/08/16 Hospitalization History childbirth Hospitalization History see above Hospitalization History dehydration from colonoscopy 10/16 Hospitalization History pneumonia 2011
--- OUTSIDE RECORDS SUMMARY | 2019-05-18 13:29 | XMS REPORT ---
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 96415980 disorder, unspecified Problem Melena K92.1 Active 3760075 Problem Other abnormal and R92.8 Active 889449340 inconclusive findings on diagnostic imaging of breast Problem Disorder of bone M85.9 Active 55461870 density and structure, unspecified Problem Lichen planus, L43.9 Active 4504792 unspecified Problem Lichen sclerosus et L90.0 Active 19562430 atrophicus Problem Zoster without B02.9 Active 661657775 complications Problem Other specified M85.80 Active 52066989 disorders of bone density and structure, unspecified site Problem Diffuse cystic N60.12 Active 89910909 mastopathy of left breast Problem Diffuse cystic N60.11 Active 63308885 mastopathy of right breast Problem Other fecal R19.5 Active 790750424 abnormalities Problem Dysuria R30.0 Active 66857467 ALLERGIES Substance Reaction Event Type Date Status Keflex stomach upset/diarrhea Drug Allergy Feb, Active ENCOUNTERS Encounter Location Date Diagnosis [facility] 103 17 May, 2019 OBGYN [place], [place] [id number] [facility] 103 Apr, [place] [id number] [place] [facility] Feb, [place] [address] [place], complications B02.9 [place] [id number] [facility] Feb, OBGYN [place] [id number] [facility] 103 Feb, Lichen planus, unspecified [facility], L43.9 ; Other abnormal and [place] [id number] inconclusive findings on diagnostic imaging of breast R92.8 and Dysuria R30.0 [facility] 103 Jan, Other abnormal and [facility], inconclusive findings on [place] [id number] diagnostic imaging of breast R92.8 [facility] Jan, OBGYN [place] [id number] [facility] 103 Jan, Other abnormal and [facility], inconclusive findings on [place] [id number] diagnostic imaging of breast R92.8 ; Diffuse cystic mastopathy of left breast N60.12 and Diffuse cystic mastopathy of right breast N60.11 [facility] 103 14 May, 2018 OBGYN [place], [place] [id number] [facility] 103 14 May, 2018 OBGYN [place], [place] [id number] [facility] 103 14 May, 2018 [facility] gynecological examination [place] [id number] (general) (routine) with abnormal findings Z01.411 ; Encounter for screening for malignant neoplasm of colon Z12.11 and Encounter for screening mammogram for malignant neoplasm of breast Z12.31 [facility] 19 Apr, 2018 Lichen sclerosus et [facility]BG[facility], atrophicus L90.0 [place] [id number] [facility] 103 Mar, Other abnormal and [facility], inconclusive findings [place] [id number] diagnostic imaging of breast R92.8 [facility] 103 Sep, Diffuse cystic mastopathy [facility], of left breast N60.12 [place] [id number] [facility] 103 May, Encounter for OBGYN [facility], gynecological examination [place] [id number] (general) (routine) with abnormal findings Z01.411 ; [...] of bone density and structure, unspecified M85.9 [facility] 103 Apr, Lichen sclerosus et [facility]BG[facility], atrophicus L90.0 [place] [id number] [facility] 103 Mar, Other abnormal and [facility], inconclusive findings [place] [id number] diagnostic imaging of breast R92.8 ; Diffuse cystic mastopathy of left breast N60.12 and Diffuse cystic mastopathy of right breast N60.11 [facility] 103 Feb, OBGYN [place], [place] [id number] [facility] 103 Oct, OBGYN [place], [place] [id number] [facility] Oct, Other abnormal and [facility], inconclusive findings on [place] [id number] diagnostic imaging of breast R92.8 [facility] 103 Oct, [facility] mammogram for malignant [place] [id number] neoplasm of breast Z12.31 and Inconclusive mammogram R92.2 [facility] Jun, [facility] [place] [id number] [facility] 103 Apr, [place] [id number] [facility] 103 Apr, OBGYN [place], [place] [id number] [facility] 103 Mar, Other abnormal and [facility], inconclusive findings on [place] [id number] diagnostic imaging of breast R92.8 [facility] Mar, [facility] [place] [id number] [facility] 103 Mar, Encounter for [facility], gynecological examination [place] [id number] (general) (routine) with abnormal findings Z01.411 ; Encounter for screening for malignant neoplasm of cervix Z12.4 ; Encounter for screening mammogram for malignant neoplasm of breast Z12.31 ; Encounter for screening for malignant neoplasm of colon Z12.11 ; Lichen sclerosus et atrophicus L90.0 ; Other specified disorders of bone density and structure, unspecified site M85.80 and Melena K92.1 [facility] Mar, Papulosquamous disorder, [facility], unspecified L44.9 and [place] [id number] Noninflammatory disorder of vulva and perineum, unspecified N90.9 [facility] 103 Mar, Papulosquamous disorder, [facility], unspecified L44.9 ; [place] [id number] Encounter for gynecological examination (general) (routine) with abnormal findings Z01.411 ; Encounter for screening mammogram for malignant neoplasm of breast Z12.31 ; Encounter for screening for malignant neoplasm of cervix Z12.4 and Encounter for screening for malignant neoplasm of colon Z12.11 [facility] 103 Mar, Papulosquamous disorder, [facility], unspecified L44.9 [place] [id number] [facility] Jan, OBGYN [place] [id number] [facility] 103 Jan, Pelvic and perineal pain [facility], R10.2 [place] [id number] [facility] 103 Jan, Pelvic and perineal pain [facility], R10.2 ; Anal spasm K59.4 ; [place] [id number] Papulosquamous disorder, unspecified L44.9 ; Dysuria R30.0 and Abnormal weight loss R63.4 [facility] 103 Dec, OBGYN [place], [place] [id number] [facility] 103 Oct, OBGYN [place], [place] [id number] [facility] 103 Oct, Dysuria 788.1 OBGYN [place], [place] [id number] [facility] Oct, UTI [Urinary tract OBGYN [address] [place], [facility]] 599.0 and [place] [id number] Lichen planus 697.0 [facility] 103 July, PELVIC PAIN 625.9 and OBGYN [facility], Lichen planus 697.0 [place] [id number] [facility] 103 July, Lichen planus 697.0 OBGYN [place] [id number] [facility] 103 July, Lichen planus 697.0 OBGYN [place], [place] [id number] [facility] 103 Jun, Vaginitis 616.10 OBGYN [place], [place] [id number] [facility] 103 16 Jun, 2014 OBGYN [place], [place] [id number] [facility] 103 16 Jun, 2014 PELVIC PAIN 625.9 OBGYN [place], [place] [id number] [facility] 14 Jun, 2014 OBGYN [place], [place] [id number] [facility] 103 14 Jun, 2014 PELVIC PAIN 625.9 ; OBG[facility], VAGINAL DISCHARGE 623.5 ; [place] [id number] Lichen planus 697.0 and Blood in stool 578.1 [facility] Mar, OBGYN [place] [id number] [facility] Mar, ROUTINE FLIGHT PHYSICIAN EXAMINATION [facility], V72.31 ; SCREEN MALIG [place] [id number] NEOP-COLON V76.51 ; SCREEN MAMMOGRAM NEC V76.12 ; Stricture of vagina 623.2 ; Osteopenia 733.90 and Lichen planus 697.0 [facility] 103 08 Jun, 2013 OBGYN [place], [place] [id number] [facility] Feb, OBG[place] [id number] [facility] Feb, ROUTINE FLIGHT PHYSICIAN EXAMINATION [facility], V72.31 ; SCREEN MAL[place] [id number] NEOP-COLON V76.51 ; SCREEN MAMMOGRAM NEC V76.12 ; Stricture of vagina 623.2 ; Osteopenia 733.90 and Lichen planus 697.0 [facility] Jan, [place]BG[place] [id number] [facility] 103 Mar, Osteopenia 733.90 OBGYN [place], [place] [id number] [facility] Mar, [place] [id number] [facility] 103 Mar, Osteopenia 733.90 OBGYN [place], [place] [id number] [facility] 103 Feb, ROUTINE FLIGHT PHYSICIAN EXAMINATION [facility], V72.31 ; PAP SMEAR W/O FLIGHT PHYSICIAN [place] [id number] EXAM V76.2 ; Lichen planus 697.0 and SCREEN MAMMOGRAM NEC V76.12 [facility] 103 Jun, PELVIC PAIN 625.9 and OBGYN [facility], Levator syndrome 564.6 [place] [id number] [facility] 103 Jun, PELVIC PAIN 625.9 OBGYN [place] [id number] [facility] 103 May, [place]BG[place] [id number] [facility] 103 May, OBGYN [place], [place] [id number] [facility] May, OBGYN [place] [id number] [facility] May, PELVIC PAIN 625.9 ; Lichen [facility], planus 697.0 and Levator [place] [id number] syndrome 564.6 [facility] 103 Sep, OBGYN [place], [place] [id number] [facility] 103 Sep, ROUTINE FLIGHT PHYSICIAN EXAMINATION [facility], V72.31 [place] [id number] [facility] 103 Aug, Ovarian cyst NOS 620.2 and [facility]BGYN [facility], BREAST PAIN 611.71 [place] [id number] [facility] Aug, Ovarian cyst NOS 620.2 OBGYN [place], [place] [id number] [facility] 103 Jun, Ovarian cyst NOS 620.2 OBGYN [place], [place] [id number] [facility] 103 Jun, PELVIC PAIN 625.9 and OBGYN [facility], Ovarian cyst NOS 620.2 [place] [id number] [facility] 103 Aug, ROUTINE FLIGHT PHYSICIAN EXAMINATION [facility], V72.31 and Lichen planus [place] [id number] 697.0 [facility] 103 Nov, [place]BG[place] [id number] [facility] Nov, OBG[place] [id number] [facility] 103 Oct, Lichen planus 697.0 OBGYN [place], [place] [id number] [facility] 103 Sep, [place] [id number] [facility] 103 Sep, Lichen sclerosus et [facility], atrophicus 701.0 ; ABN [place] [id number] FINDINGS- ORGANS 793.5 ; Urinary frequency 788.41 and Dysuria 788.1 [facility] [address] Sep, Medical Center [place] [id number] [facility] Sep, Adnexal mass 625.8 OBGYN [place], [place] [id number] [facility] 103 Sep, Adnexal mass 625.8 OBGYN [place], [place] [id number] [facility] 103 Sep, OBGYN [place], [place] [id number] [facility] 103 Aug, Adnexal mass 625.8 [facility], [place] [id number] [facility] 103 Aug, ROUTINE FLIGHT PHYSICIAN EXAMINATION OBGYN [facility], V72.31 ; Urinary frequency [place] [id number] 788.41 ; ABN FINDINGS- ORGANS 793.5 ; Bloating 787.3 and Fibrocystic disease of breast 610.1 IMMUNIZATIONS No Known Immunizations SOCIAL HISTORY Never Assessed REASON FOR REFERRAL FUNCTIONAL STATUS PLAN OF CARE Activity Details Follow Up as scheduled Reason: VITAL SIGNS Height 71 in 2019-02-14 Weight 188 lbs 2019-02-14 BMI 26.22 kg/m2 2019-02-14 Blood pressure systolic 130 mm Hg 2019-02-14 Blood pressure diastolic 90 mm Hg 2019-02-14 MEDICATIONS Medication Instructions Dosage Frequency Start End Date Duration Status Date levothyroxine 125 orally once a 1 tab(s) 24h Active mcg (0.125 mg) day multivitamin orally once a 1 cap(s) 24h Active Multiple Vitamins day Valtrex 1 g orally TID 1 tab(s) 8h Feb, 7 days Active 2018 Calcium 600+D 600 orally qd 1 tab(s) 24h Active mg-200 units Ibuprofen 800 mg Oral tid prn 1 tab 15 days Active clobetasol applied 1 collin 30 days Active topical 0.05% topically bid x 3 weeks, then weekly. prn PROCEDURES No Known procedures RESULTS No Results REASON FOR VISIT worsening vulvar pain and new lesions on buttocks Insurance Providers [facility] Member Patient Patient Patient Patient Patient Subscriber Subscriber Subscriber Group Insurance Plan Plan Plan Plan ID Relationship Address Phone Name Date of ID Name Date of No Type Insurance Insurance Insurance Coverage to Subscriber Address Phone Name Dates Blue Cross [address] Blue Cross self [place] [id number] Blue [id number] 89 [place] 2 2 Shield Y [facility] [address] [address] [employer] self C[place] [id number] Blue [id number] 89 Blue [place] 5 Cross/Blue [place] Cross/Blue Shield [id number] Shield MEDICAL (GENERAL) HISTORY Type Description Date [...] History Laparoscopic R oophorectomy 2008 Surgical History Calvin Teeth 2008 Surgical History endoscopy 03/01/14 Surgical History colonoscopy 05/08/16 Hospitalization History childbirth Hospitalization History see above Hospitalization History dehydration from colonoscopy 10/16 Hospitalization History pneumonia 2011
[2019-05-18 13:54] VITALS: BP 104/71
[2019-05-18 14:11] LABS: Influenza A Molecular POSITIVE (Negative)
--- NOTE | 2019-05-23 19:35 | UC ---
FLU HPI - HPI Summary HPI Summary: 58-year-old female symptoms had flulike symptoms over the past week. She also noted a red area on her anterior neck which has been there for about a month but more noticeable today. She has had most of her thyroid removed years ago and her thyroid levels have been within normal range on medication. She does have an appointment coming up with her baker. - History of Current Complaint Chief Complaint: UCGeneralIllness Stated Complaint: DE LA O,CHILLS,COUGH,VOMITING Time Seen by Provider: 05/18/19 13:42 Hx Obtained From: Patient ?: No Onset/Duration: Sudden Onset, Lasting Days Severity Currently: Mild Severity Initially: Moderate Pain Intensity: 8 Pain Scale Used: 0-10 Numeric Associated Signs & Symptoms: Positive: Fever, Myalgia, Cough, Nasal Congestion, Headache Related Hx: Possible Flu/Infectious Exposure - Allergy/Home Medications Allergies/Adverse Reactions: Allergies Allergy/AdvReac Type Severity Reaction Status Date / Time cephalexin AdvReac Diarrhea Verified 05/18/19 13:43 Home Medications: Home Medications Ascorbic Acid TAB* [Vitamin C TAB*] 1,000 mg PO DAILY 11/06/18 [History Confirmed 05/18/19] Calcium Carbonate [Calcium] 1,000 mg PO DAILY 11/06/18 [History Confirmed ] Levothyroxine TAB* [Synthroid 125 MCG TAB*] 125 mcg PO DAILY 11/06/18 [History Confirmed 05/18/19] Pantoprazole TAB * [Protonix TAB*] 40 mg PO DAILY 01/20/19 [History Confirmed ] guaiFENesin [Mucinex] 600 mg PO ONCE 01/20/19 [History Confirmed 05/18/19] Aspirin 81 mg CHEW TAB* [Aspirin Low Dose TAB*] 81 mg PO DAILY 05/18/19 [ History Confirmed 05/18/19] PMH/Surg Hx/FS Hx/Imm Hx Previously Healthy: Yes Endocrine History: Thyroid Disease GI/ History: Gastroesophageal Reflux, Other - Celiac disease. - Surgical History Surgical History: Yes Surgery Procedure, Year, and Place: partial hysterectomy, bladder tuck, thyroidectomy, inguinal hernia repair x2 - Family History Known Family History: Negative: Renal Disease - Social History Lives: With Family Alcohol Use: Occasionally Substance Use Type: None Smoking Status (MU): Never Smoked Tobacco Have You Smoked in the Last Year: No - Immunization History Most Recent Influenza Vaccination: Not the 2016/2017 Season Review of Systems All Other Systems Reviewed And Are Negative: Yes Constitutional: Positive: Fever, Chills ENT: Positive: Nasal Discharge Respiratory: Positive: Cough Gastrointestinal: Positive: Vomiting - Patient vomited one time today. Musculoskeletal: Positive: Myalgia Neurological/Mental Status: Positive: Headache Is Patient Immunocompromised?: No Physical Exam Triage Information Reviewed: Yes Appearance: Well-Appearing, No Pain Distress, Well-Nourished Vital Signs: Initial Vital Signs Temp 99.4 F 05/18/19 13:37 Pulse 101 05/18/19 13:37 Resp 18 05/18/19 13:37 BP 107/94 05/18/19 13:37 Pulse Ox 98 05/18/19 13:37 Vital Signs Reviewed: Yes ENT: Positive: Pharynx normal, Nasal drainage - Clear nasal coryza, TMs normal, Uvula midline Neck: Positive: Supple, Nontender, No Lymphadenopathy, Other: - Patient's anterior neck has some fullness to it, nontender on palpation. Respiratory: Positive: Lungs clear, Normal breath sounds, No respiratory distress, No accessory muscle use Cardiovascular: Positive: No Murmur, Pulses Normal, Brisk Capillary Refill, Tachycardia Abdomen Description: Positive: Nontender, No Organomegaly, Soft. Negative: CVA Tenderness (R), CVA Tenderness (L), Distended, Guarding, Hepatomegaly, McBurney' s Point Tenderness, Splenomegaly Bowel Sounds: Positive: Present Musculoskeletal Exam: Normal Neurological Exam: Normal Psychological Exam: Normal Skin: Positive: Other - Patient has some reddish colored dermatitis to her anterior neck approximately 2.0 cm x 4 cm surrounding her scar from her thyroidectomy. Nontender on palpation. I don't feel this is a cellulitis. Flu Course/Dx - Course Course Of Treatment: Rapid flu test: Positive The patient is comfortable here and nontoxic. Her anterior neck was checked by Dr. Hilario and it's felt this possibly may be related to her thyroid. She was encouraged to follow up with her baker for recheck. The patient is to go home and rest, increase fluids. - Differential Dx/Diagnosis Provider Diagnosis: Influenza Discharge ED - Sign-Out/Discharge Documenting (check all that apply): Patient Departure All imaging exams completed and their final reports reviewed: No Studies - Discharge Plan Condition: Fair Disposition: HOME Patient Education Materials: Influenza (DC) Forms: *Work Release Referrals: Suzy Melchor PA [Primary Care Provider] - Additional Instructions: Increase fluids, rest, when you have your appointment with the baker be sure that they see the skin area on your neck as well as feel the fullness present and we highly suggest that you should have a sonogram done of that area. - Billing Disposition and Condition Condition: FAIR Disposition: Home
== END 2019-05-18 14:44 | disposition home or self-care (01) ==
LOC: UCCORT 12:42
DX: J11.1 Influenza due to unidentified influenza virus with other respiratory manifestations (principal); K21.9 Gastro-esophageal reflux disease without esophagitis; E07.9 Disorder of thyroid, unspecified; M79.10 Myalgia, unspecified site; Z79.890 Hormone replacement therapy; Z79.899 Other long term (current) drug therapy; Z88.1 Allergy status to other antibiotic agents
CPT/HCPCS: 99211; G0463